=== PATIENT | male | born 1985 | race Caucasian/White ===

== ENCOUNTER 2016-06-03 05:35 | Emergency (ER) | payer SELFPAY ==
[2016-06-03] MEDS ORDERED: ASPIRIN 81 MG TABLET, CHEWABLE PO ONE (05:51)
[2016-06-03 06:28] LABS: ABSOLUTE BASOPHILS # (AUTO) 0.1 10^3/uL (0.0-0.2); ABSOLUTE EOSINOPHILS # (AUTO) 0.8 10^3/uL (0.0-0.6); ABSOLUTE LYMPHOCYTES (AUTO) 3.8 10^3/uL (0.5-4.7); ABSOLUTE MONOCYTES (AUTO) 0.9 10^3/uL (0.1-1.4); ABSOLUTE NEUT (AUTO) 5.2 10^3/uL (1.7-8.2); BASOPHILS % (AUTO) 0.5 % (0-2); EOSINOPHILS % (AUTO) 7.6 % (0-6); HEMATOCRIT 45.5 % (37.9-51.0); HEMOGLOBIN 15.7 g/dL (13.5-17.0); HGB HCT DIFFERENCE 1.6; LYMPHOCYTES % (AUTO) 35.2 % (13-45); MEAN CORPUSCULAR HEMOGLOBIN 28.5 pg (27.0-33.4); MEAN CORPUSCULAR HGB CONC 34.6 g/dL (32.0-36.0); MEAN CORPUSCULAR VOLUME 82 fl (80-97); MONOCYTES % (AUTO) 8.3 % (3-13); RED BLOOD COUNT 5.52 10^6/uL (4.35-5.55); SEGMENTED NEUTROPHILS % (AUTO) 48.4 % (42-78); WHITE BLOOD COUNT 10.8 10^3/uL (4.0-10.5)
[2016-06-03 06:51] LABS: ALANINE AMINOTRANSFERASE 41 U/L (21-72); ALBUMIN 4.6 g/dL (3.5-5.0); ALKALINE PHOSPHATASE 71 U/L (38-126); ANION GAP 14 (5-19); ASPARTATE AMINO TRANSFERASE 24 U/L (17-59); BILIRUBIN,DIRECT 0.2 mg/dL (0.0-0.4); BILIRUBIN,TOTAL 1.1 mg/dL (0.2-1.3); BLOOD UREA NITROGEN 13 mg/dL (7-20); CARBON DIOXIDE 27 mmol/L (22-30); CHLORIDE 104 mmol/L (98-107); CREATINE KINASE 127 U/L (55-170); CREATININE RESULT 0.91 mg/dL (0.52-1.25); GLUCOSE 102 mg/dL (75-110); POTASSIUM 4.1 mmol/L (3.6-5.0); SODIUM 144.6 mmol/L (137-145); TOTAL PROTEIN 7.4 g/dL (6.3-8.2)
--- NOTE | 2016-06-03 06:57 | ER Document Report ---
ED Cardiac <ISABELLEPEÑA MendietaDAVID - Last Filed: 06/03/16 07:07> - General Time seen by provider: 06:55 Mode of Arrival: Ambulatory Information source: Patient TRAVEL OUTSIDE OF THE [place] IN LAST 30 DAYS: No - HPI Patient complains to provider of: Chest pain Associated symptoms: Other - See above <SAHRA LOZA - Last Filed: 06/03/16 07:28> - General Chief Complaint: Chest Pain > 30 Stated Complaint: CHEST PAIN Notes: Patient is a 31 year old male, with a past medical history including POTS and anxiety, who presents to the emergency department complaining of chest pain intermittent for the past few weeks. Patient states that last night after work the pain worsened and he also experienced heat flash, nausea, and a copper taste in his mouth. Patient states the pain feels like "spasms" and it will sometimes radiate into his back, up his neck, or down his left arm. Patient reports that this pain is dissimilar to his POTS and anxiety in that it is more direct and makes his nauseated. Patient states he has been under a lot of stress recently and that he stopped taking his Inderal a year ago due to cost issues. Patient has no family history of ischemic coronary artery disease. ( SAHRA LOZA) - Related Data Allergies/Adverse Reactions: tramadol HCl [From [facility]] Allergy (Severe, Verified 06/03/16 05:46) Swelling of Throat Past Medical History - General Information source: Patient - Social History Smoking Status: Never Smoker Chew tobacco use (# tins/day): No Frequency of alcohol use: Occasional Drug Abuse: None Family History: Reviewed & Not Pertinent, Other - Migraine - Past Medical History Cardiac Medical History: Reports: Hx Hypertension - DX MORE THAN FIVE YEARS AGO Pulmonary Medical History: Reports: Hx Asthma - DX AT AGE [age] Neurological Medical History: Reports: Hx Seizures GI Medical History: Reports: Hx Irritable Bowel Psychiatric Medical History: Reports: Hx Anxiety - DX IN 2007, Hx Bipolar Disorder - DX IN 2007, Hx Depression - DX IN 2007, Hx Post Traumatic Stress Disorder - DX IN 2007 Past Surgical History: Reports: Hx Abdominal Surgery - APPENDIX, Hx Appendectomy , Hx Orthopedic Surgery - left wrist - Immunizations Immunizations up to date: Yes Hx Diphtheria, Pertussis, Tetanus Vaccination: Yes <SAHRA LOZA - Last Filed: 06/03/16 07:28> Review of Systems - Review of Systems Constitutional: See HPI, Other - hot flash EENT: No symptoms reported Cardiovascular: See HPI, Chest pain Respiratory: No symptoms reported Gastrointestinal: See HPI, Nausea - and "copper taste" Genitourinary: No symptoms reported Male Genitourinary: No symptoms reported Musculoskeletal: No symptoms reported Skin: No symptoms reported Hematologic/Lymphatic: No symptoms reported Neurological/Psychological: No symptoms reported -: Yes All other systems reviewed and negative <SAHRA LOZA - Last Filed: 06/03/16 07:28> Physical Exam - Vital signs Interpretation: Normal - General General appearance: Appears well, Alert - HEENT Head: Normocephalic, Atraumatic - Respiratory Respiratory status: No respiratory distress Chest status: Tender - Tenderness to palpation of left anterior chest wall that reproduces the chief complaint Breath sounds: Normal Chest palpation: Normal - Cardiovascular Rhythm: Regular Heart sounds: Normal auscultation Murmur: No - Abdominal Inspection: Normal Distension: No distension Bowel sounds: Normal Tenderness: Nontender Organomegaly: No organomegaly - Back Back: Normal, Nontender - Extremities General upper extremity: Normal inspection General lower extremity: Normal inspection - Neurological Neuro grossly intact: Yes Cognition: Normal Orientation: AAOx4 [place] Coma Scale Eye Opening: Spontaneous [place] Coma Scale Verbal: Oriented [place] Coma Scale Motor: Obeys Commands [place] Coma Scale Total: 15 Speech: Normal - Psychological Associated symptoms: Anxious - admitted by patient - Skin Skin Temperature: Warm Skin Moisture: Dry Skin Color: Normal <SAHRA LOZA - Last Filed: 06/03/16 07:28> - Vital signs Vitals: Temp Pulse Resp BP Pulse Ox 97.8 F 95 14 148/97 H 98 06/03/16 05:48 06/03/16 05:48 06/03/16 05:48 06/03/16 05:48 06/03/16 05:48 Course - Laboratory Result Diagrams: 06/03/16 06:15 06/03/16 06:15 - EKG Interpretation by Ia EKG shows normal: Sinus rhythm, [place], Intervals, QRS Complexes, ST-T Waves Rate: Normal - 86 Rhythm: NSR <DAVID WALTON - Last Filed: 06/03/16 07:07> - Laboratory Result Diagrams: 06/03/16 06:15 06/03/16 06:15 <SAHRA LOZA - Last Filed: 06/03/16 07:28> - Vital Signs Vital signs: Temp Pulse Resp BP Pulse Ox 98.1 F 95 17 132/84 H 97 06/03/16 07:01 06/03/16 05:48 06/03/16 07:01 06/03/16 07:01 06/03/16 07:01 - Laboratory Laboratory results interpreted by me: 06/03/16 06:15 WBC 10.8 H Eosinophils % 7.6 H Absolute Eosinophils 0.8 H Discharge <DAVID WALTON - Last Filed: 06/03/16 07:07> <SAHRA LOZA - Last Filed: 06/03/16 07:28> - Discharge Clinical Impression: Chest wall pain, Anxiety, Has run out of medications, POTS (postural orthostatic tachycardia syndrome) Condition: Stable Disposition: HOME, SELF-CARE Additional Instructions: Chest Wall Pain: Your chest pain has been diagnosed as coming from the chest wall. This is often caused by straining the muscles or joints in the chest during physical activity, direct trauma, coughing, or vigorous vomiting. Persons with arthritis are especially prone to this type of pain, due to inflammation of the cartilage joints near the breast bone. Occasionally, no cause can be found. Rest from strenuous physical activity. This kind of chest pain is usually made worse by movement of the chest. Depending on the symptoms, we may prescribe medicine for pain, muscle relaxation, and antiinflammatory effects. If the pain is new, and seems to be due to muscle strain, cold packs can help. Otherwise, apply gentle warmth to the painful area for 15 minutes every hour or two. You should contact the doctor immediately if things change. Further evaluation is needed if you develop a fever or cough, if the nature of the pain changes, or if you become short of breath. Prescriptions: Propranolol HCl 40 mg PO Q8 #90 tablet Referrals: KARISHMA HALL DO [Primary Care Provider] - Follow up as needed Scribe Attestation: 06/03/16 07:06 I personally performed the services described in the documentation, reviewed and edited the documentation which was dictated to the scribe in my presence, and it accurately records my words and actions. (DAVID WALTON) Scribe Documentation - Scribe Written by Scribe:: yvon Colon, 06/03/16, 0728 acting as scribe for :: Isabelle <SAHRA LOZA - Last Filed: 06/03/16 07:28>
[2016-06-03 07:15] VITALS: BP 132/84
--- NOTE | 2016-06-03 12:38 | EKG REPORT ---
SEVERITY:- NORMAL ECG - SINUS RHYTHM : Confirmed by: Douglas Arevalo 03-Jun-2016 12:37:41
== END 2016-06-03 07:23 | disposition home or self-care (01) ==
LOC: ER 05:35
DX: R07.9 Chest pain, unspecified (principal); F41.9 Anxiety disorder, unspecified; R11.0 Nausea; R43.8 Other disturbances of smell and taste; J45.909 Unspecified asthma, uncomplicated; R00.0 Tachycardia, unspecified; I10 Essential (primary) hypertension; Z91.14 Patient's other noncompliance with medication regimen; Z59.9 Problem related to housing and economic circumstances, unspecified; Z88.5 Allergy status to narcotic agent
CPT/HCPCS: 36415; 71010; 80053; 82550; 84484; 85025; 85379; 93005; 93010; 99285

== ENCOUNTER 2017-06-08 20:29 | Emergency (ER) | payer SELFPAY ==
[2017-06-08] MEDS ORDERED: ACETAMINOPHEN 325 MG TABLET PO ONE (20:44)
[2017-06-08] MEDS ORDERED: IBUPROFEN 600 MG TABLET PO ONE (20:44)
[2017-06-08] MEDS ORDERED: MORPHINE SULFATE IR 15 MG TABLET PO ONE ×2 (20:44→22:18)
[2017-06-08 21:09] LABS: APPEARANCE,URINE CLEAR; BILIRUBIN,URINE NEGATIVE (NEGATIVE); COLOR,URINE YELLOW; GLUCOSE, URINE NEGATIVE (NEGATIVE); KETONES,URINE NEGATIVE (NEGATIVE); LEUKOCYTE ESTERASE,URINE NEGATIVE (NEGATIVE); NITRITE,URINE NEGATIVE (NEGATIVE); PROTEIN,URINE NEGATIVE (NEGATIVE); URINE SPECIFIC GRAVITY 1.029
--- NOTE | 2017-06-08 22:20 | ER Document Report ---
ED General - General Chief Complaint: Scrotal Pain, Acute Onset Stated Complaint: LEFT TESTICLE PAIN Time Seen by Provider: 06/08/17 20:44 Notes: Patient is a 32-year-old male without chronic medical problems who presents for 24 hours of left testicular pain. He describes it as a progressively worsening severe, constant throbbing pain to the left testicle. Nothing improves or worsens the pain. He states that he had a similar episode approximately 1 month ago although not to this degree of severity. He states that he had an appropriate workup at that time as to the etiology of his pain and it did spontaneously resolve. He does note that his semen has been discolored over the past 24 hours having a brownish tinge to it. He also has noted some dysuria today. He notes that he was recently tested for sexually transmitted infections and all results were normal. He denies any fever or constitutional symptoms. No focal abdominal tenderness or flank tenderness. He has not seen his primary care doctor regarding today's concerns. TRAVEL OUTSIDE OF THE [place] IN LAST 30 DAYS: No - Related Data Allergies/Adverse Reactions: tramadol HCl [From [employer]] Allergy (Severe, Verified 06/03/16 05:46) Swelling of Throat Past Medical History - General Information source: Patient - Social History Smoking Status: Never Smoker Frequency of alcohol use: None Drug Abuse: None Lives with: Alone Family History: Reviewed & Not Pertinent, Other - Migraine Patient has suicidal ideation: No Patient has homicidal ideation: No - Past Medical History Cardiac Medical History: Reports: Hx Hypertension - DX MORE THAN FIVE YEARS AGO Denies: Hx Coronary Artery Disease, Hx Heart Attack Pulmonary Medical History: Reports: Hx Asthma - DX AT AGE [age] Denies: Hx Bronchitis, Hx COPD, Hx Pneumonia Neurological Medical History: Reports: Hx Seizures. Denies: Hx Cerebrovascular Accident Endocrine Medical History: Denies: Hx Diabetes Mellitus Type 2 Renal/ Medical History: Denies: Hx Peritoneal Dialysis GI Medical History: Reports: Hx Irritable Bowel. Denies: Hx Crohn's Disease, Hx Gastritis, Hx Gastroesophageal Reflux Disease, Hx Hepatitis Musculoskeltal Medical History: Denies Hx Arthritis Skin Medical History: Denies Hx MRSA Psychiatric Medical History: Reports: Hx Anxiety - DX IN 2007, Hx Bipolar Disorder - DX IN 2007, Hx Depression - DX IN 2007, Hx Post Traumatic Stress Disorder - DX IN 2007 Infectious Medical History: Denies: Hx Hepatitis, Hx MRSA Past Surgical History: Reports: Hx Abdominal Surgery - APPENDIX, Hx Appendectomy , Hx Orthopedic Surgery - left wrist. Denies: Hx Adenoidectomy, Hx Pacemaker - Immunizations Immunizations up to date: Yes Hx Diphtheria, Pertussis, Tetanus Vaccination: Yes Review of Systems - Review of Systems Notes: Constitutional: Negative for fever. HENT: Negative for sore throat. Eyes: Negative for visual changes. Cardiovascular: Negative for chest pain. Respiratory: Negative for shortness of breath. Gastrointestinal: Negative for abdominal pain, vomiting or diarrhea. Genitourinary: Positive for dysuria and left testicular tenderness Musculoskeletal: Negative for back pain. Skin: Negative for rash. Neurological: Negative for headaches, weakness or numbness. 10 point ROS negative except as marked above and in HPI. Physical Exam - Vital signs Vitals: Temp Pulse Resp BP Pulse Ox 98.0 F 85 17 128/85 H 98 06/09/17 00:08 06/09/17 00:08 06/09/17 00:08 06/09/17 00:08 06/09/17 00:08 Interpretation: Normal Notes: PHYSICAL EXAMINATION: GENERAL: Appears uncomfortable but no acute distress HEAD: Atraumatic, normocephalic. EYES: Pupils equal round and reactive to light, extraocular movements intact, sclera anicteric, conjunctiva are normal. ENT: nares patent, oropharynx clear without exudates. Moist mucous membranes. NECK: Normal range of motion, supple without lymphadenopathy LUNGS: Breath sounds clear to auscultation bilaterally and equal. No wheezes rales or rhonchi. HEART: Regular rate and rhythm without murmurs ABDOMEN: Soft, nontender, normoactive bowel sounds. No guarding, no rebound. No masses appreciated. : Normal testicular lie bilaterally. Absent cremasteric reflex bilaterally. Focal tenderness on palpation of the left testicle and epididymis. No hernia. No inguinal lymphadenopathy EXTREMITIES: Normal range of motion, no pitting or edema. No cyanosis. NEUROLOGICAL: No focal neurological deficits. Moves all extremities spontaneously and on command. PSYCH: Normal mood, normal affect. SKIN: Warm, Dry, normal turgor, no rashes or lesions noted. Course - Re-evaluation Re-evalutation: 06/08/17 22:18 Patient presents with approximately 12 hours of left testicular pain that has been progressively worsening since onset. He has a history of a similar event although not to this degree of severity approximately 1 year ago that was unclear in the etiology. Patient appears to be in significant discomfort. On testicular exam, he has equal testicular lie, absent cremasteric reflex bilaterally. Exquisite tenderness on palpation of the testicle and epididymis on the left, no tenderness on the right. Urinalysis does suggest signs of a urinary tract infection suggesting possible orchitis or epididymitis. Alternative considerations would certainly include a testicular torsion. I did order an ultrasound immediately upon evaluating this patient and he has not gone over an hour after I order the ultrasound. I have emphasized with the ultrasound department and nursing staff that he needs to go for the ultrasound immediately to rule out for testicular torsion 06/08/17 23:34 Testicular ultrasound is not visualized of acute testicular torsion. Given patient's urinalysis and focal left testicular tenderness most worrisome for possible orchitis. Gonorrhea and Chlamydia are negative. Will start on a seven -day course of cephalexin, urine culture is pending. I have provided the patient urology follow-up. At this time will discharge with return precautions and follow-up recommendations. Verbal discharge instructions given a the bedside and opportunity for questions given. Medication warnings reviewed. Patient is in agreement with this plan and has verbalized understanding of return precautions and the need for primary care follow-up in the next 24-72 hours. - Vital Signs Vital signs: Temp Pulse Resp BP Pulse Ox 98.0 F 85 17 128/85 H 98 06/09/17 00:08 06/09/17 00:08 06/09/17 00:08 06/09/17 00:08 06/09/17 00:08 - Laboratory Laboratory results interpreted by me: 06/08/17 20:56 Urine Urobilinogen 2.0 H - Diagnostic Test Radiology reviewed: Reports reviewed Discharge - Discharge Clinical Impression: Orchitis, Left testicular pain Condition: Good Disposition: HOME, SELF-CARE Additional Instructions: You were seen for painful left testicle. Your ultrasound does not show any evidence of a twisted testicle. Your urine does however appear to be infected. Your gonorrhea and chlamydia screens are negative. Your being started on a seven-day course of antibiotics to treat a likely infection based on your urinalysis findings. For your pain: Take ibuprofen 600 mg and acetaminophen 1000 mg every 6 hours together as needed for pain. If this does not control your pain you may take 15 mg of oral morphine every 4 hours as needed. Please be very careful about using the oral morphine and only use this for severe pain. You should follow-up with urology within the next 2-3 days particularly if your pain is not improving. Return to the emergency department immediately if you develop fever, worsening pain, persistent vomiting, or any other symptoms that are worrisome to you. Prescriptions: Morphine Sulfate [Morphine Ir 15 mg Tablet] 15 mg PO Q4HP PRN #6 tablet PRN Reason: Cephalexin Monohydrate [Keflex 500 mg Capsule] 500 mg PO Q6H 7 Days capsule Referrals: KAIRSHMA HALL DO [Primary Care Provider] - Follow up as needed JENN CHEN II, MD [[facility]] - Follow up in 3-5 days
[2017-06-08 22:34] LABS: CHLAM PCR NOT DETECTED (NOT DETECT); GON PCR NOT DETECTED (NOT DETECT)
--- NOTE | 2017-06-08 23:33 | RADIOLOGY REPORT (SQ) ---
EXAM DESCRIPTION: U/S SCROTUM W/DOPPLER COMPLETED DATE/TIME: 06/08/2017 11:05 pm REASON FOR STUDY: left testicle pain COMPARISON: None. TECHNIQUE: Static and realtime joseph scale imaging of the scrotum and testes. Selected color Doppler and spectral images recorded to document blood flow. LIMITATIONS: None. FINDINGS: RIGHT: TESTICLE: Normal size. Normal echotexture. Normal blood flow. No mass. EPIDIDYMIS: Normal. HYDROCELE OR VARICOCELE: Small hydrocele No varicocele. HERNIA OR EXTRA-TESTICULAR MASS: No. OTHER: No other significant finding. LEFT: TESTICLE: Normal size. Normal echotexture. Normal blood flow. No mass. EPIDIDYMIS: Normal. HYDROCELE OR VARICOCELE: Small hydrocele No varicocele. HERNIA OR EXTRA-TESTICULAR MASS: No. OTHER: No other significant finding. IMPRESSION: Small bilateral hydroceles. NO EVIDENCE OF TESTICULAR MASS OR TORSION. TECHNICAL DOCUMENTATION: JOB ID: [id number] [id number] 2010 [employer]- All Rights Reserved Reading location - IP/workstation name: [email or web address]
[2017-06-08] MEDS ORDERED: CEPHALEXIN 500 MG CAPSULE PO ONE (23:37)
[2017-06-09] MEDS ORDERED: ONDANSETRON ODT 4 MG TAB (6 TAB/ER DISP) PO PRN (00:01)
[2017-06-09 00:09] VITALS: BP 128/85
== END 2017-06-09 00:07 | disposition home or self-care (01) ==
LOC: ER 20:29
DX: N45.2 Orchitis (principal); N50.812 Left testicular pain
CPT/HCPCS: 76870; 81001; 87086; 87491; 87591; 93976; 99284

== ENCOUNTER 2017-06-12 21:25 | Inpatient (IN) | payer SELFPAY ==
[2017-06-12] MEDS ORDERED: CEFTRIAXONE INJ 1000 MG VIAL IV ONE (22:16)
[2017-06-12] MEDS ORDERED: MORPHINE SULFATE 10 MG/ML INJ IV ONE (22:17)
[2017-06-12] MEDS ORDERED: MORPHINE SULFATE 10 MG/ML INJ ONE (22:20)
[2017-06-12 22:36] LABS: ABSOLUTE BASOPHILS # (AUTO) 0.1 10^3/uL (0.0-0.2); ABSOLUTE EOSINOPHILS # (AUTO) 0.5 10^3/uL (0.0-0.6); ABSOLUTE LYMPHOCYTES (AUTO) 2.8 10^3/uL (0.5-4.7); ABSOLUTE NEUT (AUTO) 13.3 10^3/uL (1.7-8.2); BASOPHILS % (AUTO) 0.4 % (0-2); EOSINOPHILS % (AUTO) 2.8 % (0-6); HEMATOCRIT 44.7 % (37.9-51.0); LYMPHOCYTES % (AUTO) 14.8 % (13-45); MEAN CORPUSCULAR HEMOGLOBIN 28.2 pg (27.0-33.4); MEAN CORPUSCULAR HGB CONC 33.6 g/dL (32.0-36.0); MEAN CORPUSCULAR VOLUME 84 fl (80-97); MONOCYTES % (AUTO) 10.8 % (3-13); PLATELET COUNT 312 10^3/uL (150-450); RED BLOOD COUNT 5.33 10^6/uL (4.35-5.55); RED CELL DISTRIBUTION WIDTH 13.5 % (11.5-14.0); SEGMENTED NEUTROPHILS % (AUTO) 71.2 % (42-78); TOTAL CELLS COUNTED % (AUTO) 100 %; WHITE BLOOD COUNT 18.7 10^3/uL (4.0-10.5)
[2017-06-12 22:54] LABS: ANION GAP 14 (5-19); BLOOD UREA NITROGEN 15 mg/dL (7-20); CALCIUM 9.6 mg/dL (8.4-10.2); CARBON DIOXIDE 26 mmol/L (22-30); CHLORIDE 103 mmol/L (98-107); GLUCOSE 97 mg/dL (75-110); POTASSIUM 4.1 mmol/L (3.6-5.0)
[2017-06-12 22:56] LABS: APPEARANCE,URINE CLEAR; BILIRUBIN,URINE NEGATIVE (NEGATIVE); COLOR,URINE YELLOW; GLUCOSE, URINE NEGATIVE (NEGATIVE); KETONES,URINE NEGATIVE (NEGATIVE); LEUKOCYTE ESTERASE,URINE SMALL (NEGATIVE); NITRITE,URINE NEGATIVE (NEGATIVE); PROTEIN,URINE NEGATIVE (NEGATIVE); UROBILINOGEN,URINE NEGATIVE mg/dL (<2.0)
--- NOTE | 2017-06-12 23:14 | ER Document Report ---
ED General - General Chief Complaint: Testicular pain/ swelling Stated Complaint: TESTICULAR PAIN Time Seen by Provider: 06/12/17 22:08 Notes: Patient is a 32-year-old male who presents with complaint of swelling increasing pain to the left testicle. He was seen on Sunday and diagnosed with full epididymitis. His ultrasound that time was negative. He started Keflex has been taking it as prescribed. Said today his left scrotal region and testicle started to swell a large amount and is become very painful. No fevers. No vomiting. No abdominal pain. He was negative for gonorrhea chlamydia on Sunday. No recent trauma or injuries. No sexual activity but he has masturbated. He says that his ejaculate is somewhat bloody. TRAVEL OUTSIDE OF THE [place] IN LAST 30 DAYS: No - Related Data Allergies/Adverse Reactions: tramadol HCl [From [employer]] Allergy (Severe, Verified 06/03/16 05:46) Swelling of Throat Past Medical History - Social History Smoking Status: Never Smoker Chew tobacco use (# tins/day): No Frequency of alcohol use: Occasional Drug Abuse: Marijuana Family History: Reviewed & Not Pertinent, Other - Migraine Patient has suicidal ideation: No Patient has homicidal ideation: No - Past Medical History Cardiac Medical History: Reports: Hx Hypertension - DX MORE THAN FIVE YEARS AGO Denies: Hx Coronary Artery Disease, Hx Heart Attack Pulmonary Medical History: Reports: Hx Asthma - DX AT AGE [age] Denies: Hx Bronchitis, Hx COPD, Hx Pneumonia Neurological Medical History: Reports: Hx Seizures. Denies: Hx Cerebrovascular Accident Endocrine Medical History: Denies: Hx Diabetes Mellitus Type 2 Renal/ Medical History: Denies: Hx Peritoneal Dialysis GI Medical History: Reports: Hx Irritable Bowel. Denies: Hx Crohn's Disease, Hx Gastritis, Hx Gastroesophageal Reflux Disease, Hx Hepatitis Musculoskeltal Medical History: Denies Hx Arthritis Skin Medical History: Denies Hx MRSA Psychiatric Medical History: Reports: Hx Anxiety - DX IN 2007, Hx Bipolar Disorder - DX IN 2007, Hx Depression - DX IN 2007, Hx Post Traumatic Stress Disorder - DX IN 2007 Infectious Medical History: Denies: Hx Hepatitis, Hx MRSA Past Surgical History: Reports: Hx Abdominal Surgery - APPENDIX, Hx Appendectomy , Hx Orthopedic Surgery - left wrist. Denies: Hx Adenoidectomy, Hx Pacemaker - Immunizations Immunizations up to date: Yes Hx Diphtheria, Pertussis, Tetanus Vaccination: Yes Review of Systems - Review of Systems Notes: My Normal Review Basic REVIEW OF SYSTEMS: CONSTITUTIONAL : Denies fever, chills, or sweats. Denies recent illness. GASTROINTESTINAL: Denies abdominal pain. Denies nausea, vomiting, or diarrhea. Denies constipation. Last BM: GENITOURINARY: Denies difficulty urinating, painful urination, burning, frequency, or blood in urine. Male genital: Swelling and redness to left scrotal region. SKIN: Denies rash or skin lesions. NEUROLOGICAL: Denies altered mental status or loss of consciousness. Denies headache. Denies weakness or paralysis or loss of use of either side. Denies problems with gait or speech. Denies sensory or motor loss. ALL OTHER SYSTEMS REVIEWED AND NEGATIVE. Physical Exam - Vital signs Vitals: Temp Pulse Resp BP Pulse Ox 98.1 F 134 H 16 151/96 H 97 06/12/17 21:32 06/12/17 21:32 06/12/17 21:32 06/12/17 21:32 06/12/17 21:32 - Notes Notes: General Appearance: Well nourished, alert, cooperative, no acute distress, moderate obvious discomfort. Vitals: reviewed, See vital signs table. Eyes: PERRL, EOMI, Conjuctiva clear Abdomen: Normal BS, soft, No rigidity, No abdominal tenderness, No guarding, no rebound, no abdominal masses, no organomegaly Genital: Patient has large amount of swelling and redness to the left scrotal area and is firm however left scrotal area. Tender to touch. Skin: warm, dry, appropriate color, no rash Neuro: speech clear, oriented x 3, normal affect, responds appropriately to questions. Course - Re-evaluation Re-evalutation: 06/13/17 00:14 Ultrasound shows worsening orchitis. No evidence of abscess at this time. We have urology coverage starting at 7 AM. I did give him a dose of IV Rocephin. I did speak with the hospitalist Dr. Pabon who agrees to admit the patient for IV antibiotics and consult with urology. I did explain the plan to the patient and he is agreeable to it. Patient is on propranolol for pots. He did not have his evening dose today. This may be why he is even more tachycardic. I think he is tachycardic because of that in conjunction with with the pain from his arthritis. I will give a dose of his propranolol being that he has not had it. Dictation of this chart was performed using voice recognition software; therefore, there may be some unintended grammatical errors. 06/13/17 00:15 - Vital Signs Vital signs: Temp Pulse Resp BP Pulse Ox 98.1 F 134 H 16 151/96 H 97 06/12/17 21:32 06/12/17 21:32 06/12/17 21:32 06/12/17 21:32 06/12/17 21:32 - Laboratory Result Diagrams: 06/12/17 22:25 06/12/17 22:25 Laboratory results interpreted by me: 06/12/17 06/12/17 22:25 22:30 WBC 18.7 H Absolute Neutrophils 13.3 H Absolute Monocytes 2.0 H Urine Blood SMALL H Ur Leukocyte Esterase SMALL H Discharge - Discharge Clinical Impression: Orchiditis Condition: Stable Disposition: ADMITTED OBSERVATION Admitting Provider: Hospitalist Unit Admitted: Medical Floor
--- NOTE | 2017-06-12 23:57 | RADIOLOGY REPORT (SQ) ---
EXAM DESCRIPTION: U/S SCROTUM W/DOPPLER CLINICAL HISTORY: 32 years, Male, testicular pain COMPARISON: None. LIMITATIONS: None. FINDINGS: Heterogeneous, edematous appearance of the 1.8 x 1.6 x 1.3 cm left epididymis with increased vascularity. Mild increased vascularity of the left testis. Small septated left hydrocele. Asymmetric scrotal wall thickening measures 1.6 cm. Small right hydrocele. Else, 1.2 x 0.7 x 0.9 cm right epididymis, 4.2 cm right testis, 3.8 cm left testis, appear otherwise unremarkable. No testicular torsion or mass. IMPRESSION: 1. Moderate left epididymoorchitis. Asymmetric left paracentral scrotal wall thickening measures 1.6 cm and may indicate scrotal cellulitis. 2. No testicular torsion or mass.
[2017-06-13] MEDS ORDERED: ONDANSETRON HCL INJ/PF 4 MG/2 ML SDV IV PRN (00:10)
[2017-06-13] MEDS ORDERED: MAG HYDROX/AL HYDROX/SIMETH SUSP 30 ML UDCUP PO PRN (00:10)
[2017-06-13] MEDS ORDERED: IPRATROPIUM/ALBUTEROL 0.5-2.5 MG/3 ML AMPUL NEB PRN (00:10)
[2017-06-13] MEDS ORDERED: MAGNESIUM HYDROXIDE SUSP 30 ML UDCUP PO PRN (00:10)
[2017-06-13] MEDS ORDERED: PROPRANOLOL HCL 40 MG TABLET PO ONE (00:12)
[2017-06-13] MEDS ORDERED: NORMAL SALINE 1000 ML 1,000 ML IV ONE (00:13)
[2017-06-13] MEDS ORDERED: MORPHINE SULFATE 10 MG/ML INJ IV ONE (00:13)
[2017-06-13] MEDS: ACETAMINOPHEN 325 MG TABLET PO SCH ×4 (00:15→17:56)
[2017-06-13] MEDS ORDERED: NORMAL SALINE 1000 ML 1,000 ML IV SCH (00:15)
[2017-06-13] MEDS ORDERED: PROPRANOLOL HCL 40 MG TABLET ONE (00:36)
--- NOTE | 2017-06-13 01:54 | PDOC H&P ---
History of Present Illness Admission Date/PCP: 06/13/17 00:37 CHASE HALL MD Patient complains of: 7 days of left testicular pain History of Present Illness: ANGEL SHORE is a 32 year old male with past medical history of Vital disease on propanolol. Patient presents with follow-up of left testicular epididymitis , swelling and pain patient was seen treated and discharged 4 days ago with Keflex without significant improvement. In the emergency room CBC reveals leukocytosis of 18,000, ultrasound reveals acute epididymitis without torsion he started on IV Rocephin for the hospitalist for admission. Patient admits to single episode several years ago, denies exceptional STD risk, Chlamydia gonorrhea returned negative from 4 days ago. Past Medical History Cardiac Medical History: Reports: Hypertension - DX MORE THAN FIVE YEARS AGO Denies: Coronary Artery Disease, Myocardial Infarction Pulmonary Medical History: Reports: Asthma - DX AT AGE [age] Denies: Bronchitis, Chronic Obstructive Pulmonary Disease (COPD), Pneumonia Neurological Medical History: Reports: Seizures Endocrine Medical History: Denies: Diabetes Mellitus Type 2 GI Medical History: Denies: Crohn's Disease, Gastroesophageal Reflux Disease, Hepatitis Musculoskeltal Medical History: Denies: Arthritis Psychiatric Medical History: Reports: Bipolar Disorder - DX IN 2008, Depression - DX IN 2007, Post Traumatic Stress Disorder - DX IN 2007 Hematology: Denies: Anemia Infectious Medical History: Denies: Methicillin-Resistant Staph Aureus Past Surgical History Past Surgical History: Reports: Appendectomy, Orthopedic Surgery - left wrist Denies: Pacemaker Social History Information Source: Patient, Emergency Med Personnel, [facility] Records Smoking Status: Never Smoker Frequency of Alcohol Use: None Drugs: None - Advance Directive Resuscitation Status: Full Code Family History Family History: Other - Migraine Parental Family History Reviewed: Yes Children Family History Reviewed: Yes Sibling(s) Family History Reviewed.: Yes Medication/Allergy Home Medications: Propranolol HCl 40 mg PO Q8 #90 tablet 06/03/16 Allergies/Adverse Reactions: tramadol HCl [From [facility]] Allergy (Severe, Verified 06/03/16 05:46) Swelling of Throat Review of Systems Constitutional: ABSENT: chills, fever(s), headache(s), weight gain, weight loss Eyes: ABSENT: visual disturbances Ears: ABSENT: hearing changes Cardiovascular: ABSENT: chest pain, dyspnea on exertion, edema, orthropnea, palpitations Respiratory: ABSENT: cough, hemoptysis Gastrointestinal: ABSENT: abdominal pain, constipation, diarrhea, hematemesis, hematochezia, nausea, vomiting Genitourinary: ABSENT: dysuria, hematuria Musculoskeletal: ABSENT: joint swelling Integumentary: ABSENT: rash, wounds Neurological: ABSENT: abnormal gait, abnormal speech, confusion, dizziness, focal weakness, syncope Psychiatric: ABSENT: anxiety, depression, homidical ideation, suicidal ideation Endocrine: ABSENT: cold intolerance, heat intolerance, polydipsia, polyuria Hematologic/Lymphatic: ABSENT: easy bleeding, easy bruising Physical Exam Vital Signs: Temp Pulse Resp BP Pulse Ox 99.1 F 111 H 18 117/81 97 06/13/17 00:36 06/13/17 00:36 06/13/17 00:36 06/13/17 00:36 06/13/17 00:36 General appearance: PRESENT: cooperative, mild distress, well-developed, well- nourished Head exam: PRESENT: atraumatic, normocephalic Eye exam: PRESENT: conjunctiva pink, EOMI, PERRLA. ABSENT: scleral icterus Ear exam: PRESENT: normal external ear exam Mouth exam: PRESENT: moist, tongue midline Neck exam: ABSENT: carotid bruit, JVD, lymphadenopathy, thyromegaly Respiratory exam: PRESENT: clear to auscultation chayito. ABSENT: rales, rhonchi, wheezes Cardiovascular exam: PRESENT: RRR. ABSENT: diastolic murmur, rubs, systolic murmur Pulses: PRESENT: normal dorsalis pedis pul Vascular exam: PRESENT: normal capillary refill GI/Abdominal exam: PRESENT: normal bowel sounds, soft. ABSENT: distended, guarding, mass, organolmegaly, rebound, tenderness Rectal exam: PRESENT: deferred Gentrourinary exam: PRESENT: scrotal swelling, testicular tenderness - Left- sided posterior tenderness, enlarged indurated 4 x 5 cm, no perineum or gluteal pain. ABSENT: urethral discharge, indwelling catheter Extremities exam: PRESENT: full ROM. ABSENT: calf tenderness, clubbing, pedal edema Neurological exam: PRESENT: alert, awake, oriented to person, oriented to place , oriented to time, oriented to situation, CN II-XII grossly intact. ABSENT: motor sensory deficit Psychiatric exam: PRESENT: appropriate affect, normal mood. ABSENT: homicidal ideation, suicidal ideation Skin exam: PRESENT: dry, intact, warm. ABSENT: cyanosis, rash Results Impressions: Scrotum Ultrasound 06/12/17 22:10 IMPRESSION: 1. Moderate left epididymoorchitis. Asymmetric left paracentral scrotal wall thickening measures 1.6 cm and may indicate scrotal cellulitis. 2. No testicular torsion or mass. Assessment & Plan - Diagnosis (1) Orchitis Is this a current diagnosis for this admission?: Yes Plan: Symptomatic management, empiric Rocephin, follow-up CBC, blood and urine culture , consider urology consult. (2) Left testicular pain Is this a current diagnosis for this admission?: Yes Plan: Symptomatic management. Correction #1 - Time Time Spent: 30 to 50 Minutes - Inpatient Certification Medical Necessity: Need Close Monitoring Due to Risk of Patient Decompensation
[2017-06-13] MEDS: OXYCODONE HCL IR 5 MG TABLET PO PRN ×3 (02:27→17:50)
[2017-06-13 04:47] LABS: ABSOLUTE BASOPHILS # (AUTO) 0.1 10^3/uL (0.0-0.2); ABSOLUTE EOSINOPHILS # (AUTO) 0.5 10^3/uL (0.0-0.6); ABSOLUTE LYMPHOCYTES (AUTO) 2.3 10^3/uL (0.5-4.7); ABSOLUTE MONOCYTES (AUTO) 1.7 10^3/uL (0.1-1.4); ABSOLUTE NEUT (AUTO) 13.1 10^3/uL (1.7-8.2); BASOPHILS % (AUTO) 0.5 % (0-2); EOSINOPHILS % (AUTO) 2.9 % (0-6); HEMATOCRIT 39.2 % (37.9-51.0); LYMPHOCYTES % (AUTO) 13.2 % (13-45); MEAN CORPUSCULAR HEMOGLOBIN 27.7 pg (27.0-33.4); MEAN CORPUSCULAR HGB CONC 33.1 g/dL (32.0-36.0); MEAN CORPUSCULAR VOLUME 84 fl (80-97); MONOCYTES % (AUTO) 9.6 % (3-13); PLATELET COUNT 248 10^3/uL (150-450); RED BLOOD COUNT 4.69 10^6/uL (4.35-5.55); SEGMENTED NEUTROPHILS % (AUTO) 73.8 % (42-78); TOTAL CELLS COUNTED % (AUTO) 100 %; WHITE BLOOD COUNT 17.7 10^3/uL (4.0-10.5)
[2017-06-13 05:11] LABS: ANION GAP 9 (5-19); BLOOD UREA NITROGEN 14 mg/dL (7-20); CALCIUM 8.7 mg/dL (8.4-10.2); CARBON DIOXIDE 27 mmol/L (22-30); CHLORIDE 107 mmol/L (98-107); GLUCOSE 123 mg/dL (75-110); POTASSIUM 4.2 mmol/L (3.6-5.0); SODIUM 142.6 mmol/L (137-145)
[2017-06-13] MEDS: HEPARIN SOD (PORCINE) 5,000 UNIT/ML 1 ML SYRINGE SUBCUT SCH ×3 (06:55→21:26)
[2017-06-13] MEDS: DOCUSATE SODIUM 100 MG CAPSULE PO SCH ×2 (09:18→17:50)
[2017-06-13] MEDS: CEFTRIAXONE SODIUM 1,000 MG in NORMAL SALINE 100 ML IV SCH (09:43)
[2017-06-13] MEDS ORDERED: CEFTRIAXONE 1 GM/D5W RTU 1 GM/50 ML RTUPB IV SCH (10:00)
--- NOTE | 2017-06-13 12:39 | PDOC PROGRESS REPORT ---
Subjective Progress Note for:: 06/13/17 Subjective:: Admitted overnight for epididymitis. Complains of pain in scrotum. No fever or chills, no chest pain or shortness of breath or palpitations. Patient seen by urologist Neo today and he stated no abscess, and no surgical intervention needed at this time. Recommend continue Rocephin, [id number] ibuprofen, elevate the scrotum. Reason For Visit: EPIDIDYMITMS Physical Exam Vital Signs: Temp Pulse Resp BP Pulse Ox 98.9 F 94 16 109/71 96 06/13/17 12:00 06/13/17 12:00 06/13/17 12:00 06/13/17 12:00 06/13/17 12:00 Intake & Output 06/12/17 06/13/17 06/14/17 06:59 06:59 06:59 Weight 104.2 kg GENERAL: Well-developed, no acute distress HEENT: Normocephalic/atraumatic NECK supple, no JVD CARDIOVASCULAR: RRR, normal S1-S2 LUNGS: CTA bilaterally ABDOMEN: Soft, NT, NL bowel sounds EXTREMITIES: No edema, clubbing, cyanosis : Significant edema of scrotum with some redness, my involvement, tenderness NEUROLOGICAL: Alert, oriented x 3, nonfocal Results Laboratory Results: 06/13/17 04:01 06/13/17 04:01 06/13/17 06/13/17 04:01 04:01 WBC 17.7 H RBC 4.69 Hgb 13.0 L Hct 39.2 MCV 84 MCH 27.7 MCHC 33.1 RDW 13.0 Plt Count 248 Seg Neutrophils % 73.8 Lymphocytes % 13.2 Monocytes % 9.6 Eosinophils % 2.9 Basophils % 0.5 Absolute Neutrophils 13.1 H Absolute Lymphocytes 2.3 Absolute Monocytes 1.7 H Absolute Eosinophils 0.5 Absolute Basophils 0.1 Sodium 142.6 Potassium 4.2 Chloride 107 Carbon Dioxide 27 Anion Gap 9 BUN 14 Creatinine 0.81 Est GFR ( Amer) > 60 Est GFR (Non-Af Amer) > 60 Glucose 123 H Calcium 8.7 Impressions: Scrotum Ultrasound 06/12/17 22:10 IMPRESSION: 1. Moderate left epididymoorchitis. Asymmetric left paracentral scrotal wall thickening measures 1.6 cm and may indicate scrotal cellulitis. 2. No testicular torsion or mass. Assessment & Plan - Plan Summary Plan Summary: (1) Orchitis Is this a current diagnosis for this admission?: Yes Plan: Continue symptomatic management, empiric Rocephin, follow-up CBC, blood and urine culture, urology consult appreciated. (2) Left testicular pain Is this a current diagnosis for this admission?: Yes Plan: Symptomatic management. Elevate scrotum, [id number] ibuprofen by urology recommendation.
[2017-06-13] MEDS: IBUPROFEN 400 MG TABLET PO SCH ×2 (14:54→21:26)
[2017-06-14 06:58] LABS: ABSOLUTE EOSINOPHILS # (AUTO) 0.5 10^3/uL (0.0-0.6); ABSOLUTE MONOCYTES (AUTO) 2.1 10^3/uL (0.1-1.4); ABSOLUTE NEUT (AUTO) 11.4 10^3/uL (1.7-8.2); BASOPHILS % (AUTO) 0.2 % (0-2); EOSINOPHILS % (AUTO) 3.3 % (0-6); HEMATOCRIT 39.9 % (37.9-51.0); HEMOGLOBIN 13.2 g/dL (13.5-17.0); LYMPHOCYTES % (AUTO) 12.5 % (13-45); MEAN CORPUSCULAR HEMOGLOBIN 27.9 pg (27.0-33.4); MEAN CORPUSCULAR VOLUME 84 fl (80-97); MONOCYTES % (AUTO) 12.9 % (3-13); PLATELET COUNT 265 10^3/uL (150-450); RED BLOOD COUNT 4.73 10^6/uL (4.35-5.55); RED CELL DISTRIBUTION WIDTH 13.2 % (11.5-14.0); SEGMENTED NEUTROPHILS % (AUTO) 71.1 % (42-78); TOTAL CELLS COUNTED % (AUTO) 100 %
[2017-06-14 07:16] LABS: ANION GAP 10 (5-19); BLOOD UREA NITROGEN 15 mg/dL (7-20); CALCIUM 9.4 mg/dL (8.4-10.2); CARBON DIOXIDE 30 mmol/L (22-30); CHLORIDE 105 mmol/L (98-107); GLUCOSE 100 mg/dL (75-110); POTASSIUM 4.5 mmol/L (3.6-5.0); SODIUM 144.9 mmol/L (137-145)
[2017-06-14] MEDS: IBUPROFEN 400 MG TABLET PO SCH ×3 (08:23→23:00)
[2017-06-14] MEDS: ACETAMINOPHEN 325 MG TABLET PO SCH ×2 (09:02→16:39)
[2017-06-14] MEDS: OXYCODONE HCL IR 5 MG TABLET PO PRN ×2 (09:02→14:46)
[2017-06-14] MEDS: DOCUSATE SODIUM 100 MG CAPSULE PO SCH ×2 (09:02→17:26)
[2017-06-14] MEDS: CEFTRIAXONE SODIUM 1,000 MG in NORMAL SALINE 100 ML IV SCH (09:03)
[2017-06-14 13:32] LABS: APPEARANCE,URINE CLEAR; BILIRUBIN,URINE NEGATIVE (NEGATIVE); COLOR,URINE YELLOW; GLUCOSE, URINE NEGATIVE (NEGATIVE); KETONES,URINE NEGATIVE (NEGATIVE); LEUKOCYTE ESTERASE,URINE NEGATIVE (NEGATIVE); NITRITE,URINE NEGATIVE (NEGATIVE); PROTEIN,URINE NEGATIVE (NEGATIVE); URINE SPECIFIC GRAVITY 1.009; UROBILINOGEN,URINE NEGATIVE mg/dL (<2.0)
[2017-06-14] MEDS: HEPARIN SOD (PORCINE) 5,000 UNIT/ML 1 ML SYRINGE SUBCUT SCH ×3 (13:40→23:29)
--- NOTE | 2017-06-14 16:33 | PDOC PROGRESS REPORT ---
Subjective Progress Note for:: 06/14/17 Subjective:: Admitted 06/13 for epididymitis. Complains of pain in scrotum, though improving. Swelling also improving. No fever or chills, no chest pain or shortness of breath or palpitations. Patient is being followed by urologist Neo today and he stated no abscess, and no surgical intervention needed at this time. Recommend continue Rocephin, [id number] ibuprofen, elevate the scrotum. Also has recommended rechecking scrotal ultrasound prior to discharge, and checking kidney ultrasound today. Reason For Visit: EPIDIDYMITMS Physical Exam Vital Signs: Temp Pulse Resp BP Pulse Ox 98.2 F 96 17 124/79 97 06/14/17 15:07 06/14/17 15:07 06/14/17 15:07 06/14/17 15:07 06/14/17 15:07 Intake & Output 06/13/17 06/14/17 06/15/17 06:59 06:59 06:59 Intake Total 965 350 Output Total 1200 Balance -235 350 Weight 104.2 kg 107.1 kg GENERAL: Well-developed, no acute distress HEENT: Normocephalic/atraumatic NECK supple, no JVD CARDIOVASCULAR: RRR, normal S1-S2 LUNGS: CTA bilaterally ABDOMEN: Soft, NT, NL bowel sounds EXTREMITIES: No edema, clubbing, cyanosis : Significant edema of scrotum with some redness, tenderness NEUROLOGICAL: Alert, oriented x 3, nonfocal Results Laboratory Results: 06/14/17 06:25 06/14/17 06:25 06/14/17 06/14/17 06/14/17 06:25 06:25 13:00 WBC 16.0 H RBC 4.73 Hgb 13.2 L Hct 39.9 MCV 84 MCH 27.9 MCHC 33.0 RDW 13.2 Plt Count 265 Seg Neutrophils % 71.1 Lymphocytes % 12.5 L Monocytes % 12.9 Eosinophils % 3.3 Basophils % 0.2 Absolute Neutrophils 11.4 H Absolute Lymphocytes 2.0 Absolute Monocytes 2.1 H Absolute Eosinophils 0.5 Absolute Basophils 0.0 Sodium 144.9 Potassium 4.5 Chloride 105 Carbon Dioxide 30 Anion Gap 10 BUN 15 Creatinine 0.89 Est GFR ( Amer) > 60 Est GFR (Non-Af Amer) > 60 Glucose 100 Calcium 9.4 Urine Color YELLOW Urine Appearance CLEAR Urine pH 6.0 Ur Specific Sem[place] 1.009 Urine Protein NEGATIVE Urine Glucose (UA) NEGATIVE Urine Ketones NEGATIVE Urine Blood NEGATIVE Urine Nitrite NEGATIVE Ur Leukocyte Esterase NEGATIVE Urine WBC (Auto) 8 Urine RBC (Auto) 0 Impressions: Scrotum Ultrasound 06/12/17 22:10 IMPRESSION: 1. Moderate left epididymoorchitis. Asymmetric left paracentral scrotal wall thickening measures 1.6 cm and may indicate scrotal cellulitis. 2. No testicular torsion or mass. Assessment & Plan - Plan Summary Plan Summary: (1) Orchitis Is this a current diagnosis for this admission?: Yes Plan: Continue symptomatic management, empiric Rocephin, white blood cell slightly done today although still elevated, follow-up CBC, blood and urine culture, urology consult appreciated. -Urology follow-up appreciated. Recommending scrotal ultrasound prior to discharge and kidney ultrasound today. (2) Left testicular pain Is this a current diagnosis for this admission?: Yes Plan: Symptomatic management. Elevate scrotum, [id number] ibuprofen per urology recommendation.
--- NOTE | 2017-06-14 17:30 | RADIOLOGY REPORT (SQ) ---
EXAM DESCRIPTION: U/S RETROPERITON (RENAL/AORTA) COMPLETED DATE/TIME: 06/14/2017 5:10 pm REASON FOR STUDY: abdominal pain COMPARISON: CT abdomen pelvis 10/30/2009 TECHNIQUE: Dynamic and static grayscale images acquired of the kidneys and bladder and recorded on P ACS. Additional selected color Doppler and spectral images recorded. LIMITATIONS: None. FINDINGS: RIGHT KIDNEY: 11.6 cm in length. Normal echogenicity. No solid or suspicious masses. No hy dronephrosis. 5 to 7 mm echogenic shadowing focus right mid-pole kidney likely an intrarenal nonobst ructive stone. LEFT KIDNEY: 12 cm in length. Normal echogenicity. No solid or suspicious masses. 1 cm cyst left lo wer pole kidney. No hydronephrosis. No calcifications. BLADDER: Decompressed not well seen OTHER FINDINGS: No other significant finding. IMPRESSION: No right or left hydronephrosis 5 to 7 mm right midpole intrarenal nonobstructive calculus Bladder not visualized TECHNICAL DOCUMENTATION: JOB ID: [id number] [employer]- All Rights Reserved Reading location - IP/workstation name: [facility]
[2017-06-14] MEDS ORDERED: PROPRANOLOL HCL 40 MG TABLET PO ONE (21:00)
[2017-06-15] MEDS: ACETAMINOPHEN 325 MG TABLET PO SCH ×3 (00:15→16:12)
[2017-06-15] MEDS: HEPARIN SOD (PORCINE) 5,000 UNIT/ML 1 ML SYRINGE SUBCUT SCH ×2 (05:00→14:46)
[2017-06-15] MEDS: IBUPROFEN 400 MG TABLET PO SCH ×3 (06:55→22:31)
[2017-06-15 07:05] LABS: ABSOLUTE EOSINOPHILS # (AUTO) 0.7 10^3/uL (0.0-0.6); ABSOLUTE LYMPHOCYTES (AUTO) 2.5 10^3/uL (0.5-4.7); ABSOLUTE MONOCYTES (AUTO) 1.4 10^3/uL (0.1-1.4); ABSOLUTE NEUT (AUTO) 8.8 10^3/uL (1.7-8.2); BASOPHILS % (AUTO) 0.4 % (0-2); EOSINOPHILS % (AUTO) 5.4 % (0-6); HEMATOCRIT 40.1 % (37.9-51.0); HEMOGLOBIN 13.3 g/dL (13.5-17.0); LYMPHOCYTES % (AUTO) 18.5 % (13-45); MEAN CORPUSCULAR HEMOGLOBIN 27.8 pg (27.0-33.4); MEAN CORPUSCULAR HGB CONC 33.2 g/dL (32.0-36.0); MEAN CORPUSCULAR VOLUME 84 fl (80-97); MONOCYTES % (AUTO) 10.2 % (3-13); PLATELET COUNT 288 10^3/uL (150-450); RED CELL DISTRIBUTION WIDTH 13.1 % (11.5-14.0); SEGMENTED NEUTROPHILS % (AUTO) 65.5 % (42-78); TOTAL CELLS COUNTED % (AUTO) 100 %; WHITE BLOOD COUNT 13.4 10^3/uL (4.0-10.5)
[2017-06-15 07:19] LABS: ANION GAP 11 (5-19); BLOOD UREA NITROGEN 15 mg/dL (7-20); CALCIUM 9.3 mg/dL (8.4-10.2); CARBON DIOXIDE 26 mmol/L (22-30); CHLORIDE 108 mmol/L (98-107); GLUCOSE 89 mg/dL (75-110); POTASSIUM 4.6 mmol/L (3.6-5.0); SODIUM 144.9 mmol/L (137-145)
[2017-06-15] MEDS: PROPRANOLOL HCL 40 MG TABLET PO SCH ×3 (09:27→22:32)
[2017-06-15] MEDS ORDERED: PROPRANOLOL HCL 40 MG TABLET PO ONE (09:30)
[2017-06-15] MEDS: DOCUSATE SODIUM 100 MG CAPSULE PO SCH ×2 (09:34→17:17)
[2017-06-15] MEDS: CEFTRIAXONE SODIUM 1,000 MG in NORMAL SALINE 100 ML IV SCH (09:34)
[2017-06-15] MEDS: OXYCODONE HCL IR 5 MG TABLET PO PRN ×2 (09:41→16:12)
--- NOTE | 2017-06-15 15:34 | PDOC PROGRESS REPORT ---
Subjective Progress Note for:: 06/15/17 Subjective:: Admitted 06/13 for epididymitis. Complains of pain in scrotum still, though continues to improve and swelling much better. No fever or chills, no chest pain or shortness of breath or palpitations. Patient is being followed by urologist Neo and he stated no abscess, and no surgical intervention needed at this time. Recommend continue Rocephin, [id number] ibuprofen, elevate the scrotum. Also has recommended rechecking scrotal ultrasound prior to discharge, and checking kidney ultrasound 06/14 --result of. Today the urologist recommended stopping Rocephin after today's dose and transitioning to p.o. antibiotics by tomorrow watching overnight after starting p.o. antibiotics to ensure no fevers and a white count remaining improved. Reason For Visit: EPIDIDYMITMS Physical Exam Vital Signs: Temp Pulse Resp BP Pulse Ox 98.2 F 71 17 122/74 97 06/15/17 11:43 06/15/17 11:43 06/15/17 11:43 06/15/17 11:43 06/15/17 11:43 Intake & Output 06/14/17 06/15/17 06/16/17 06:59 06:59 06:59 Intake Total 965 350 Output Total 1200 300 Balance -235 50 Weight 107.1 kg 101.8 kg 101.8 kg GENERAL: Well-developed, no acute distress HEENT: Normocephalic/atraumatic NECK supple, no JVD CARDIOVASCULAR: RRR, normal S1-S2 LUNGS: CTA bilaterally ABDOMEN: Soft, NT, NL bowel sounds EXTREMITIES: No edema, clubbing, cyanosis : Edema of scrotum but improved, also improvement in tenderness NEUROLOGICAL: Alert, oriented x 3, nonfocal Results Laboratory Results: 06/15/17 06:22 06/15/17 06:22 06/15/17 06/15/17 06:22 06:22 WBC 13.4 H RBC 4.80 Hgb 13.3 L Hct 40.1 MCV 84 MCH 27.8 MCHC 33.2 RDW 13.1 Plt Count 288 Seg Neutrophils % 65.5 Lymphocytes % 18.5 Monocytes % 10.2 Eosinophils % 5.4 Basophils % 0.4 Absolute Neutrophils 8.8 H Absolute Lymphocytes 2.5 Absolute Monocytes 1.4 Absolute Eosinophils 0.7 H Absolute Basophils 0.0 Sodium 144.9 Potassium 4.6 Chloride 108 H Carbon Dioxide 26 Anion Gap 11 BUN 15 Creatinine 0.78 Est GFR ( Amer) > 60 Est GFR (Non-Af Amer) > 60 Glucose 89 Calcium 9.3 Impressions: Scrotum Ultrasound 06/12/17 22:10 IMPRESSION: 1. Moderate left epididymoorchitis. Asymmetric left paracentral scrotal wall thickening measures 1.6 cm and may indicate scrotal cellulitis. 2. No testicular torsion or mass. Renal Ultrasound 06/14/17 00:00 IMPRESSION: No right or left hydronephrosis 5 to 7 mm right midpole intrarenal nonobstructive calculus Bladder not visualized Assessment & Plan - Plan Summary Plan Summary: (1) Orchitis Is this a current diagnosis for this admission?: Yes Plan: Continue symptomatic management, empiric Rocephin, white blood cell slightly done today although still elevated, follow-up CBC, blood and urine culture, urology consult appreciated. -Urology follow-up appreciated. Recommending scrotal ultrasound prior to discharge. Kidney ultrasound 06/14 as an imaging above. -Urology recommended stopping IV antibiotics after today's dose and starting p.o. antibiotics tomorrow. May recheck scrotal ultrasound after 24 hours of p.o. antibiotics if no fever or increase in white count, and if no abscess repeat scrotal ultrasound, [place] home. (2) Left testicular pain Is this a current diagnosis for this admission?: Yes Plan: Symptomatic management. Elevate scrotum, ibuprofen per urology recommendation.
[2017-06-16] MEDS: ACETAMINOPHEN 325 MG TABLET PO SCH ×3 (00:38→18:19)
[2017-06-16] MEDS: HEPARIN SOD (PORCINE) 5,000 UNIT/ML 1 ML SYRINGE SUBCUT SCH ×4 (00:40→21:55)
[2017-06-16] MEDS: IBUPROFEN 400 MG TABLET PO SCH (06:18)
[2017-06-16 06:28] LABS: ABSOLUTE BASOPHILS # (AUTO) 0.1 10^3/uL (0.0-0.2); ABSOLUTE LYMPHOCYTES (AUTO) 2.8 10^3/uL (0.5-4.7); ABSOLUTE MONOCYTES (AUTO) 1.2 10^3/uL (0.1-1.4); ABSOLUTE NEUT (AUTO) 5.8 10^3/uL (1.7-8.2); BASOPHILS % (AUTO) 0.7 % (0-2); EOSINOPHILS % (AUTO) 9.1 % (0-6); HEMATOCRIT 39.1 % (37.9-51.0); LYMPHOCYTES % (AUTO) 25.6 % (13-45); MEAN CORPUSCULAR HGB CONC 33.2 g/dL (32.0-36.0); MEAN CORPUSCULAR VOLUME 84 fl (80-97); MONOCYTES % (AUTO) 11.2 % (3-13); PLATELET COUNT 311 10^3/uL (150-450); RED BLOOD COUNT 4.64 10^6/uL (4.35-5.55); RED CELL DISTRIBUTION WIDTH 13.1 % (11.5-14.0); SEGMENTED NEUTROPHILS % (AUTO) 53.4 % (42-78); TOTAL CELLS COUNTED % (AUTO) 100 %; WHITE BLOOD COUNT 10.9 10^3/uL (4.0-10.5)
[2017-06-16 06:50] LABS: ANION GAP 12 (5-19); BLOOD UREA NITROGEN 21 mg/dL (7-20); CALCIUM 9.3 mg/dL (8.4-10.2); CARBON DIOXIDE 26 mmol/L (22-30); CHLORIDE 106 mmol/L (98-107); GLUCOSE 80 mg/dL (75-110); POTASSIUM 4.6 mmol/L (3.6-5.0)
--- NOTE | 2017-06-16 10:08 | PDOC PROGRESS REPORT ---
Subjective Progress Note for:: 06/16/17 Subjective:: Admitted 06/13 with scrotal swelling and pain. Today reports pain in scrotum continues to improve as well as swelling. No fever or chills, no chest pain or shortness of breath or palpitations. Patient was followed by urologist Neo and he stated no abscess, and stated no surgical intervention needed at this time. Recommended continue Rocephin, ibuprofen, elevating the scrotum. Also has recommended rechecking scrotal ultrasound prior to discharge, and checking kidney ultrasound--done 06/14 --result as in imaging below. The urologist further recommended stopping Rocephin after yesterday (06/15) dose and transitioning to p.o. antibiotics by today (06/16), watching overnight after starting the p.o. antibiotics to ensure no fevers and that white count is remaining improved. If he remains afebrile and white count remains improved, plan is to re-check scrotal ultrasound tomorrow, and if no abscess patient may be discharged home. Reason For Visit: EPIDIDYMITMS Physical Exam Vital Signs: Temp Pulse Resp BP Pulse Ox 97.6 F 64 16 115/71 98 06/16/17 07:42 06/16/17 07:42 06/16/17 07:42 06/16/17 07:42 06/16/17 07:42 Intake & Output 06/15/17 06/16/17 06/17/17 06:59 06:59 06:59 Intake Total 350 1600 Output Total 300 2500 Balance 50 -900 Weight 101.8 kg 102.7 kg GENERAL: Well-developed, no acute distress NECK supple, no JVD CARDIOVASCULAR: RRR, normal S1-S2 LUNGS: CTA bilaterally ABDOMEN: Soft, NT, NL bowel sounds EXTREMITIES: No edema, clubbing, cyanosis : Edema of scrotum still but greatly improved, also improvement in tenderness NEUROLOGICAL: Alert, oriented x 3, nonfocal Results Laboratory Results: 06/16/17 06:01 06/16/17 06:01 06/16/17 06/16/17 06:01 06:01 WBC 10.9 H RBC 4.64 Hgb 13.0 L Hct 39.1 MCV 84 MCH 28.0 MCHC 33.2 RDW 13.1 Plt Count 311 Seg Neutrophils % 53.4 Lymphocytes % 25.6 Monocytes % 11.2 Eosinophils % 9.1 H Basophils % 0.7 Absolute Neutrophils 5.8 Absolute Lymphocytes 2.8 Absolute Monocytes 1.2 Absolute Eosinophils 1.0 H Absolute Basophils 0.1 Sodium 144.0 Potassium 4.6 Chloride 106 Carbon Dioxide 26 Anion Gap 12 BUN 21 H Creatinine 0.84 Est GFR ( Amer) > 60 Est GFR (Non-Af Amer) > 60 Glucose 80 Calcium 9.3 Impressions: Scrotum Ultrasound 06/12/17 22:10 IMPRESSION: 1. Moderate left epididymoorchitis. Asymmetric left paracentral scrotal wall thickening measures 1.6 cm and may indicate scrotal cellulitis. 2. No testicular torsion or mass. Renal Ultrasound 06/14/17 00:00 IMPRESSION: No right or left hydronephrosis 5 to 7 mm right midpole intrarenal nonobstructive calculus Bladder not visualized Assessment & Plan - Plan Summary Plan Summary: (1) Orchitis Is this a current diagnosis for this admission?: Yes Plan: Continue symptomatic management, empiric Rocephin, white blood cell continues to be improved, follow-up CBC, blood and urine culture, urology consult appreciated. -Urology recommending scrotal ultrasound prior to discharge. Kidney ultrasound as an imaging above. -Urology recommended stopping IV antibiotics after yesterday's dose and starting p.o. antibiotics today. -Doxycycline 100 mg twice daily started. Recommend close follow-up 10 days of these antibiotics. -Urology recommended recheck scrotal ultrasound after 24 hours of p.o. antibiotics, if no fever or increase in white count, and if no abscess on repeat scrotal ultrasound, to [place] home and f/u with him (Dr. Larson) in clinic in 2 weeks. (2) Left testicular pain Is this a current diagnosis for this admission?: Yes Plan: Symptomatic management. Elevate scrotum, ibuprofen per urology recommendation.
[2017-06-16] MEDS ORDERED: IBUPROFEN 400 MG TABLET PO PRN (10:10)
[2017-06-16] MEDS: DOXYCYCLINE HYCLATE 100 MG TABLET PO SCH ×2 (12:11→21:58)
[2017-06-16] MEDS: DOCUSATE SODIUM 100 MG CAPSULE PO SCH ×2 (12:12→18:20)
[2017-06-16] MEDS: PROPRANOLOL HCL 40 MG TABLET PO SCH ×3 (12:14→21:58)
[2017-06-16] MEDS: OXYCODONE HCL IR 5 MG TABLET PO PRN (18:18)
[2017-06-17] MEDS: ACETAMINOPHEN 325 MG TABLET PO SCH ×3 (01:14→16:25)
[2017-06-17] MEDS: HEPARIN SOD (PORCINE) 5,000 UNIT/ML 1 ML SYRINGE SUBCUT SCH ×3 (06:13→21:52)
[2017-06-17] MEDS: PROPRANOLOL HCL 40 MG TABLET PO SCH ×3 (06:14→21:52)
[2017-06-17] MEDS: OXYCODONE HCL IR 5 MG TABLET PO PRN ×2 (07:16→20:17)
[2017-06-17 07:37] LABS: ABSOLUTE BASOPHILS # (AUTO) 0.1 10^3/uL (0.0-0.2); ABSOLUTE LYMPHOCYTES (AUTO) 3.1 10^3/uL (0.5-4.7); ABSOLUTE MONOCYTES (AUTO) 1.2 10^3/uL (0.1-1.4); ABSOLUTE NEUT (AUTO) 6.5 10^3/uL (1.7-8.2); BASOPHILS % (AUTO) 0.6 % (0-2); EOSINOPHILS % (AUTO) 8.4 % (0-6); HEMATOCRIT 41.4 % (37.9-51.0); HEMOGLOBIN 13.7 g/dL (13.5-17.0); LYMPHOCYTES % (AUTO) 26.1 % (13-45); MEAN CORPUSCULAR HEMOGLOBIN 27.7 pg (27.0-33.4); MEAN CORPUSCULAR HGB CONC 33.1 g/dL (32.0-36.0); MEAN CORPUSCULAR VOLUME 84 fl (80-97); MONOCYTES % (AUTO) 10.3 % (3-13); PLATELET COUNT 376 10^3/uL (150-450); RED BLOOD COUNT 4.94 10^6/uL (4.35-5.55); RED CELL DISTRIBUTION WIDTH 13.4 % (11.5-14.0); SEGMENTED NEUTROPHILS % (AUTO) 54.6 % (42-78); TOTAL CELLS COUNTED % (AUTO) 100 %; WHITE BLOOD COUNT 11.9 10^3/uL (4.0-10.5)
[2017-06-17 07:58] LABS: ANION GAP 11 (5-19); BLOOD UREA NITROGEN 17 mg/dL (7-20); CALCIUM 9.7 mg/dL (8.4-10.2); CARBON DIOXIDE 26 mmol/L (22-30); CHLORIDE 105 mmol/L (98-107); GLUCOSE 89 mg/dL (75-110); POTASSIUM 4.8 mmol/L (3.6-5.0); SODIUM 141.9 mmol/L (137-145)
--- NOTE | 2017-06-17 08:39 | PDOC PROGRESS REPORT ---
Subjective Progress Note for:: 06/17/17 Subjective:: Patient is still complaining of moderate pain left testis The swelling and redness have gone down but certainly are still present There is no fever no chills The white blood count is now 11.4 Patient was switched to p.o. doxycycline yesterday Reason For Visit: EPIDIDYMITMS Physical Exam Vital Signs: Temp Pulse Resp BP Pulse Ox 97.6 F 70 18 117/82 96 06/17/17 07:24 06/17/17 07:24 06/17/17 07:24 06/17/17 07:24 06/17/17 07:24 Intake & Output 06/16/17 06/17/17 06/18/17 00:59 00:59 00:59 Intake Total 1600 1000 Output Total 1900 2050 Balance -300 -1050 Weight 101.8 kg 102.7 kg General appearance: PRESENT: no acute distress, well-developed, well-nourished Head exam: PRESENT: atraumatic, normocephalic Eye exam: PRESENT: conjunctiva pink, EOMI, PERRLA. ABSENT: scleral icterus Neck exam: ABSENT: carotid bruit, JVD, lymphadenopathy, thyromegaly Respiratory exam: PRESENT: clear to auscultation chayito. ABSENT: rales, rhonchi, wheezes Cardiovascular exam: PRESENT: RRR. ABSENT: diastolic murmur, rubs, systolic murmur GI/Abdominal exam: PRESENT: normal bowel sounds, soft. ABSENT: distended, guarding, mass, organolmegaly, rebound, tenderness Rectal exam: PRESENT: normal inspection, normal prostate. ABSENT: tenderness Gentrourinary exam: PRESENT: scrotal swelling, testicular tenderness, other - Still extreme swelling of the left scrotum The testes is swollen tender on palpation The skin of the scrotum is very red Extremities exam: PRESENT: full ROM. ABSENT: calf tenderness, clubbing, pedal edema Results Laboratory Results: 06/17/17 06:51 06/17/17 06:51 06/17/17 06/17/17 06:51 06:51 WBC 11.9 H RBC 4.94 Hgb 13.7 Hct 41.4 MCV 84 MCH 27.7 MCHC 33.1 RDW 13.4 Plt Count 376 Seg Neutrophils % 54.6 Lymphocytes % 26.1 Monocytes % 10.3 Eosinophils % 8.4 H Basophils % 0.6 Absolute Neutrophils 6.5 Absolute Lymphocytes 3.1 Absolute Monocytes 1.2 Absolute Eosinophils 1.0 H Absolute Basophils 0.1 Sodium 141.9 Potassium 4.8 Chloride 105 Carbon Dioxide 26 Anion Gap 11 BUN 17 Creatinine 0.81 Est GFR ( Amer) > 60 Est GFR (Non-Af Amer) > 60 Glucose 89 Calcium 9.7 06/14/17 11:45 Penis Gram Stain - Final 06/14/17 11:45 Penis Urethral Culture - Final Skin Shannon No Neisseria Gonorrhoeae 06/14/17 13:00 Clean Catch Midstream Urine Culture - Final NO GROWTH 2 DAYS Impressions: Scrotum Ultrasound 06/12/17 22:10 IMPRESSION: 1. Moderate left epididymoorchitis. Asymmetric left paracentral scrotal wall thickening measures 1.6 cm and may indicate scrotal cellulitis. 2. No testicular torsion or mass. Renal Ultrasound 06/14/17 00:00 IMPRESSION: No right or left hydronephrosis 5 to 7 mm right midpole intrarenal nonobstructive calculus Bladder not visualized Assessment & Plan - Diagnosis (1) Epididymoorchitis Is this a current diagnosis for this admission?: Yes (2) Cellulitis of scrotum Is this a current diagnosis for this admission?: Yes - Time Time Spent with patient: Patient had multiple test and has been now treated for almost 10 days without much improvement Tests for chlamydia and GC were negative Rectal examination today is not suggestive of an acute prostatitis and or perirectal abscess Patient's management needs to be reevaluated Patient has epididymo-orchitis and scrotal cellulitis Ultrasound of the scrotum will be performed as planned We will also order CT of the pelvis with IV contrast We will speak with urology and/or infectious disease when results are available Time Spent with patient: 25-34 minutes
[2017-06-17] MEDS: DOCUSATE SODIUM 100 MG CAPSULE PO SCH ×2 (09:18→17:07)
[2017-06-17] MEDS: DOXYCYCLINE HYCLATE 100 MG TABLET PO SCH ×2 (09:18→21:52)
--- NOTE | 2017-06-17 09:18 | RADIOLOGY REPORT (SQ) ---
EXAM DESCRIPTION: CT PELVIS WITH COMPLETED DATE/TIME: 06/17/2017 9:01 am REASON FOR STUDY: orchitis include scrotum with IV contrast COMPARISON: None. TECHNIQUE: CT scan of the pelvis performed WITH IV CONTRAST. Images reviewed with soft tissue and b one windows. Reconstructed coronal and sagittal MPR images reviewed. All images stored on PACS. All CT scanners at this facility use dose modulation, iterative reconstruction, and/or weight based d osing when appropriate to reduce radiation dose to as low as reasonably achievable (ALARA). [facility]: Dose Right [facility]: CareDose [facility]: Dose Right [facility]: Teradose 4D [facility]: Smart SaleMove RADIATION DOSE: CT Rad equipment meets quality standard of care and radiation dose reduction techniq ues were employed. CTDIvol: 18.8 - 20.8 mGy. DLP: 1967 mGy-cm. mGy. LIMITATIONS: None. FINDINGS: PELVIC BONES: No acute fracture. No worrisome bone lesions. VISUALIZED SPINE: No acute findings. HIP(S): No acute fracture or dislocation. No worrisome bone lesions. PELVIC SOFT TISSUES: Bilateral scrotal hydroceles. Otherwise unremarkable. EXTRAPELVIC SOFT TISSUES: Scrotal wall edema. Otherwise normal. OTHER: No other significant finding. IMPRESSION: BILATERAL SCROTAL HYDROCELES AND SCROTAL WALL EDEMA. OTHERWISE UNREMARKABLE CONTRAST-EN HANCED CT OF THE PELVIS. TECHNICAL DOCUMENTATION: JOB ID: [id number] Quality ID # [id number]: Final reports with documentation of one or more dose reduction techniques (e.g., Au tomated exposure control, adjustment of the mA and/or kV according to patient size, use of iterative reconstruction technique) 2010 [employer]- All Rights Reserved Reading location - IP/workstation name: [email or web address]
--- NOTE | 2017-06-17 09:20 | RADIOLOGY REPORT (SQ) ---
EXAM DESCRIPTION: U/S SCROTUM W/DOPPLER COMPLETED DATE/TIME: 06/17/2017 8:53 am REASON FOR STUDY: testicular pain COMPARISON: 06/12/2017 TECHNIQUE: Static and realtime joseph scale imaging of the scrotum and testes. Selected color Doppler and spectral images recorded to document blood flow. LIMITATIONS: None. FINDINGS: RIGHT: TESTICLE: Normal size. Normal echotexture. Normal blood flow. No mass. EPIDIDYMIS: Normal. HYDROCELE OR VARICOCELE: Small hydrocele. No varicocele. HERNIA OR EXTRA-TESTICULAR MASS: No. OTHER: Scrotal wall thickening. LEFT: TESTICLE: Normal size. Normal echotexture. Normal blood flow. No mass. EPIDIDYMIS: Enlarged heterogeneous in echotexture with increased color flow. HYDROCELE OR VARICOCELE: Complex hydrocele. No varicocele. HERNIA OR EXTRA-TESTICULAR MASS: No. OTHER: Scrotal wall thickening. IMPRESSION: NORMAL TESTES WITHOUT MASS OR TORSION. SONOGRAPHIC FINDINGS AGAIN CONSISTENT WITH LEFT-SIDED EPIDIDYMITIS WITH COMPLEX LEFT HYDROCELE AND SM ALL RIGHT HYDROCELE. TECHNICAL DOCUMENTATION: JOB ID: [id number]- All Rights Reserved Reading location - IP/workstation name: [email or web address]
[2017-06-17] MEDS ORDERED: LEVOFLOXACIN 750 MG/D5W RTU 750 MG/150 ML RTUPB IV ONE (17:00)
[2017-06-17] MEDS ORDERED: MEROPENEM 1 GM VIAL INJ PRN (17:41)
[2017-06-17] MEDS ORDERED: MEROPENEM 1 GM VIAL ONE (18:06)
[2017-06-17] MEDS: MEROPENEM 1 GM in NORMAL SALINE 50 ML IV SCH (18:13)
[2017-06-18] MEDS: MEROPENEM 1 GM in NORMAL SALINE 50 ML IV SCH ×3 (02:00→18:37)
[2017-06-18] MEDS: ACETAMINOPHEN 325 MG TABLET PO SCH ×3 (02:39→17:27)
[2017-06-18] MEDS: HEPARIN SOD (PORCINE) 5,000 UNIT/ML 1 ML SYRINGE SUBCUT SCH ×3 (06:20→21:56)
[2017-06-18] MEDS: PROPRANOLOL HCL 40 MG TABLET PO SCH ×3 (06:20→21:53)
--- NOTE | 2017-06-18 08:16 | PDOC PROGRESS REPORT ---
Subjective Progress Note for:: 06/18/17 Subjective:: Patient states he is feeling a little better Pain is less ; decreased redness of the left scrotum No fever no chills Reason For Visit: EPIDIDYMITMS Physical Exam Vital Signs: Temp Pulse Resp BP Pulse Ox 98.7 F 84 17 119/79 93 06/17/17 23:56 06/17/17 23:56 06/17/17 23:56 06/17/17 23:56 06/17/17 23:56 Intake & Output 06/17/17 06/18/17 06/19/17 00:59 00:59 00:59 Intake Total 1000 960 975 Output Total 2050 1950 350 Balance -1050 -990 625 Weight 102.7 kg General appearance: PRESENT: no acute distress, cooperative Head exam: PRESENT: atraumatic, normocephalic Eye exam: PRESENT: conjunctiva pink, EOMI, PERRLA. ABSENT: scleral icterus Neck exam: ABSENT: carotid bruit, JVD, lymphadenopathy, thyromegaly Respiratory exam: PRESENT: clear to auscultation chayito. ABSENT: rales, rhonchi, wheezes Cardiovascular exam: PRESENT: RRR. ABSENT: diastolic murmur, rubs, systolic murmur GI/Abdominal exam: PRESENT: normal bowel sounds, soft. ABSENT: distended, guarding, mass, organolmegaly, rebound, tenderness Gentrourinary exam: PRESENT: other - Left scrotum still somewhat swollen There is decreased redness and increased warmth of the skin to touch and decreased tenderness The testis is still swollen firm tender on palpation Results Laboratory Results: 06/17/17 06:51 06/17/17 06:51 06/17/17 06:51 C-Reactive Protein 42.7 H 06/14/17 11:45 Penis Gram Stain - Final 06/14/17 11:45 Penis Urethral Culture - Final Skin Shannon No Neisseria Gonorrhoeae Impressions: Renal Ultrasound 06/14/17 00:00 IMPRESSION: No right or left hydronephrosis 5 to 7 mm right midpole intrarenal nonobstructive calculus Bladder not visualized Scrotum Ultrasound 06/17/17 07:00 IMPRESSION: NORMAL TESTES WITHOUT MASS OR TORSION. SONOGRAPHIC FINDINGS AGAIN CONSISTENT WITH LEFT-SIDED EPIDIDYMITIS WITH COMPLEX LEFT HYDROCELE AND SMALL RIGHT HYDROCELE. Pelvis CT 06/17/17 07:52 IMPRESSION: BILATERAL SCROTAL HYDROCELES AND SCROTAL WALL EDEMA. OTHERWISE UNREMARKABLE CONTRAST-ENHANCED CT OF THE PELVIS. Assessment & Plan - Diagnosis (1) Epididymoorchitis Is this a current diagnosis for this admission?: Yes (2) Cellulitis of scrotum Is this a current diagnosis for this admission?: Yes - Time Time Spent with patient: Treatment was initiated yesterday with meropenem to cover for gram-negative patient is allergic to Levaquin We will continue meropenem and doxycycline until almost complete resolution of the epididymitis We would expect the patient to remain in the hospital for another 48-72 hours until he is clinically improved Will follow CBC and CRP is Time Spent with patient: 25-34 minutes - Inpatient Certification Based on my medical assessment, after consideration of the patient's comorbidities, presenting symptoms, or acuity I expect that the services needed warrant INPATIENT care.: Yes I certify that my determination is in accordance with my understanding of Medicare's requirements for reasonable and necessary INPATIENT services [42 CFR 412.3e].: Yes Medical Necessity: Need for IV Antibiotics
[2017-06-18] MEDS: DOXYCYCLINE HYCLATE 100 MG TABLET PO SCH ×2 (09:31→21:53)
[2017-06-18] MEDS: DOCUSATE SODIUM 100 MG CAPSULE PO SCH ×2 (09:48→17:45)
[2017-06-18] MEDS ORDERED: LEVOFLOXACIN 750 MG/D5W RTU 750 MG/150 ML RTUPB IV SCH (18:00)
[2017-06-19] MEDS: ACETAMINOPHEN 325 MG TABLET PO SCH ×4 (00:09→23:25)
[2017-06-19] MEDS: MEROPENEM 1 GM in NORMAL SALINE 50 ML IV SCH ×3 (02:46→18:33)
[2017-06-19] MEDS: PROPRANOLOL HCL 40 MG TABLET PO SCH ×3 (06:18→23:15)
[2017-06-19] MEDS: HEPARIN SOD (PORCINE) 5,000 UNIT/ML 1 ML SYRINGE SUBCUT SCH ×3 (06:18→23:15)
[2017-06-19 07:08] LABS: HEMATOCRIT 43.5 % (37.9-51.0); HEMOGLOBIN 14.5 g/dL (13.5-17.0); MEAN CORPUSCULAR HEMOGLOBIN 27.8 pg (27.0-33.4); MEAN CORPUSCULAR HGB CONC 33.3 g/dL (32.0-36.0); MEAN CORPUSCULAR VOLUME 84 fl (80-97); PLATELET COUNT 360 10^3/uL (150-450); RED BLOOD COUNT 5.21 10^6/uL (4.35-5.55); RED CELL DISTRIBUTION WIDTH 13.4 % (11.5-14.0); WHITE BLOOD COUNT 12.8 10^3/uL (4.0-10.5)
[2017-06-19 07:45] LABS: ABSOLUTE LYMPHOCYTES# (MANUAL) 3.5 10^3/uL (0.5-4.7); ABSOLUTE MONOCYTES # (MANUAL) 0.8 10^3/uL (0.1-1.4); ABSOLUTE NEUTROPHILS# (MANUAL) 7.4 10^3/uL (1.7-8.2); BAND NEUTROPHILS % (MANUAL) 3 % (3-5); BASOPHILS % (MANUAL) 3 % (0-2); EOSINOPHILS % (MANUAL) 6 % (0-6); LYMPHOCYTES % (MANUAL) 24 % (13-45); MONOCYTES % (MANUAL) 6 % (3-13); SEGMENTED NEUTROPHILS % (MAN) 55 % (42-78); TOTAL CELLS COUNTED 100
[2017-06-19 07:54] LABS: PLATELET COMMENT ADEQUATE; POLYCHROMASIA SLIGHT; TOXIC GRANULATION 1+
[2017-06-19] MEDS: DOXYCYCLINE HYCLATE 100 MG TABLET PO SCH ×2 (10:12→23:14)
[2017-06-19] MEDS: OXYCODONE HCL IR 5 MG TABLET PO PRN ×2 (10:24→23:26)
[2017-06-19] MEDS: DOCUSATE SODIUM 100 MG CAPSULE PO SCH ×2 (10:55→18:11)
--- NOTE | 2017-06-19 13:51 | PDOC PROGRESS REPORT ---
Subjective Progress Note for:: 06/19/17 Subjective:: Patient is feeling better There is less redness and swelling of the left testis Is a lot more comfortable No fever no chills Reason For Visit: EPIDIDYMITMS Physical Exam Vital Signs: Temp Pulse Resp BP Pulse Ox 98.1 F 104 H 14 133/90 H 97 06/19/17 13:00 06/19/17 13:00 06/19/17 13:00 06/19/17 13:00 06/19/17 13:00 Intake & Output 06/18/17 06/19/17 06/20/17 00:59 00:59 00:59 Intake Total 960 3695 1371 Output Total 1950 2250 1300 Balance -990 1445 71 Weight 103.8 kg No acute distress alert and awake Pupils are PERRLA extraocular motor intact Neck supple Heart regular rhythm no murmur no gallop Lungs clear abdomen soft nontender Genitals Left testis still somewhat swollen and firm and tender on palpation Scrotum no redness decreased swelling; decreased tenderness on palpation Results Laboratory Results: 06/19/17 06:39 06/17/17 06:51 06/19/17 06/19/17 06:39 06:39 WBC 12.8 H RBC 5.21 Hgb 14.5 Hct 43.5 MCV 84 MCH 27.8 MCHC 33.3 RDW 13.4 Plt Count 360 Seg Neutrophils % Not Reportable Lymphocytes % Not Reportable Monocytes % Not Reportable Eosinophils % Not Reportable Basophils % Not Reportable Absolute Neutrophils Not Reportable Absolute Lymphocytes Not Reportable Absolute Monocytes Not Reportable Absolute Eosinophils Not Reportable Absolute Basophils Not Reportable C-Reactive Protein 13.3 H Impressions: Renal Ultrasound 06/14/17 00:00 IMPRESSION: No right or left hydronephrosis 5 to 7 mm right midpole intrarenal nonobstructive calculus Bladder not visualized Scrotum Ultrasound 06/17/17 07:00 IMPRESSION: NORMAL TESTES WITHOUT MASS OR TORSION. SONOGRAPHIC FINDINGS AGAIN CONSISTENT WITH LEFT-SIDED EPIDIDYMITIS WITH COMPLEX LEFT HYDROCELE AND SMALL RIGHT HYDROCELE. Pelvis CT 06/17/17 07:52 IMPRESSION: BILATERAL SCROTAL HYDROCELES AND SCROTAL WALL EDEMA. OTHERWISE UNREMARKABLE CONTRAST-ENHANCED CT OF THE PELVIS. Assessment & Plan - Diagnosis (1) Epididymoorchitis Is this a current diagnosis for this admission?: Yes (2) Cellulitis of scrotum Is this a current diagnosis for this admission?: Yes - Time Time Spent with patient: Patient appears greatly improved at this time Noted that CRP has decreased to 14 The white blood count still remains somewhat elevated We will continue IV imipenem for another 24 hours Reevaluate patient in a.m. We will likely discharge patient in 24 hours on Levaquin and doxycycline Time Spent with patient: 25-34 minutes - Inpatient Certification Based on my medical assessment, after consideration of the patient's comorbidities, presenting symptoms, or acuity I expect that the services needed warrant INPATIENT care.: Yes I certify that my determination is in accordance with my understanding of Medicare's requirements for reasonable and necessary INPATIENT services [42 CFR 412.3e].: Yes Medical Necessity: Need for IV Antibiotics
[2017-06-20] MEDS: MEROPENEM 1 GM in NORMAL SALINE 50 ML IV SCH ×2 (01:50→09:28)
[2017-06-20] MEDS: PROPRANOLOL HCL 40 MG TABLET PO SCH (06:27)
[2017-06-20] MEDS: HEPARIN SOD (PORCINE) 5,000 UNIT/ML 1 ML SYRINGE SUBCUT SCH (06:29)
[2017-06-20 07:13] LABS: HEMATOCRIT 42.8 % (37.9-51.0); HEMOGLOBIN 14.2 g/dL (13.5-17.0); MEAN CORPUSCULAR HEMOGLOBIN 27.7 pg (27.0-33.4); MEAN CORPUSCULAR HGB CONC 33.2 g/dL (32.0-36.0); MEAN CORPUSCULAR VOLUME 83 fl (80-97); PLATELET COUNT 351 10^3/uL (150-450); RED BLOOD COUNT 5.13 10^6/uL (4.35-5.55); RED CELL DISTRIBUTION WIDTH 13.2 % (11.5-14.0); WHITE BLOOD COUNT 14.6 10^3/uL (4.0-10.5)
[2017-06-20 08:00] LABS: ABSOLUTE LYMPHOCYTES# (MANUAL) 3.4 10^3/uL (0.5-4.7); ABSOLUTE MONOCYTES # (MANUAL) 0.6 10^3/uL (0.1-1.4); ABSOLUTE NEUTROPHILS# (MANUAL) 10.1 10^3/uL (1.7-8.2); BAND NEUTROPHILS % (MANUAL) 3 % (3-5); BASOPHILS % (MANUAL) 0 % (0-2); EOSINOPHILS % (MANUAL) 4 % (0-6); LYMPHOCYTES % (MANUAL) 19 % (13-45); METAMYELOCYTES % (MANUAL) 3 % (0); MONOCYTES % (MANUAL) 4 % (3-13); MYELOCYTES % (MANUAL) 3 % (0); PROMYELOCYTES % (MANUAL) 1 % (0); SEGMENTED NEUTROPHILS % (MAN) 59 % (42-78); TOTAL CELLS COUNTED 100
[2017-06-20 08:01] LABS: PLATELET COMMENT ADEQUATE
[2017-06-20 08:02] LABS: RBC MORPHOLOGY COMMENT NORMO-CYTIC/CHROMIC; TOXIC GRANULATION 1+
[2017-06-20] MEDS: ACETAMINOPHEN 325 MG TABLET PO SCH (08:35)
[2017-06-20] MEDS: DOCUSATE SODIUM 100 MG CAPSULE PO SCH (09:11)
[2017-06-20] MEDS: DOXYCYCLINE HYCLATE 100 MG TABLET PO SCH (09:28)
[2017-06-20 10:36] VITALS: BP 133/90
[2017-06-20 14:37] LABS: PATH REVIEW PATHOLOGIST REVIEWED
--- NOTE | 2017-06-21 16:56 | PDOC DISCHARGE SUMMARY ---
General - Admit/Disc Date/PCP Admission Date/Primary Care Provider: 06/13/17 01:59 CHASE HALL MD Discharge Date: 06/20/17 - Discharge Diagnosis (1) Epididymoorchitis Is this a current diagnosis for this admission?: Yes (2) Cellulitis of scrotum Is this a current diagnosis for this admission?: Yes - Additional Information Resuscitation Status: Full Code Discharge Diet: As Tolerated Discharge Activity: Activity As Tolerated Prescriptions: Cefpodoxime Proxetil [Vantin 200 mg Tablet] 1 tab PO Q12 #28 tab Doxycycline Hyclate [Vibramycin 100 mg Tablet] 100 mg PO Q12 #28 tablet Home Medications: Propranolol HCl 40 mg PO Q8 #90 tablet 06/03/16 Cefpodoxime Proxetil [Vantin 200 mg Tablet] 1 tab PO Q12 #28 tab 06/20/17 Doxycycline Hyclate [Vibramycin 100 mg Tablet] 100 mg PO Q12 #28 tablet History of Present Illness Patient complains of: swelling pain left testis History of Present Illness: ANGEL SHORE is a 32 year old male with past medical history of Vital disease on propanolol. Patient presents with follow-up of left testicular epididymitis , swelling and pain patient was seen treated and discharged 4 days ago with Keflex without significant improvement. In the emergency room CBC reveals leukocytosis of 18,000, ultrasound reveals acute epididymitis without torsion he started on IV Rocephin for the hospitalist for admission. Patient admits to single episode several years ago, denies exceptional STD risk, Chlamydia gonorrhea returned negative from 4 days ago. Hospital Course Hospital Course: 1- epididymo orchitis scrotal US was performed showing normal testis no torsion Lt sided epididymitis comlex left hydrocele small rt hydrocele scrotal wall tickening CT pelvis showed bilateral hydroceles and scrotal edema Patient was initially treated with doxycycline - he did not improve the left testis was persistantly swollen ,red to touch and extremely painful patient stated had an allergy to Levaquin we initiated meropenem IV and within 48 hours had marked improvement with decreased redness swelling and pain Patient was discharged on vantin and doxycycline po for 2 weeks Physical Exam Vital Signs: Temp Pulse Resp BP Pulse Ox 97.8 F 57 L 16 133/90 H 96 06/20/17 10:26 06/20/17 10:26 06/20/17 10:26 06/20/17 10:26 06/20/17 10:26 Intake & Output 06/20/17 06/21/17 06/22/17 00:59 00:59 00:59 Intake Total 2394 1375 Output Total 1800 1350 Balance 594 25 Weight 103.8 kg 105.9 kg No acute distress alert and awake Pupils are PERRLA extraocular motor intact Neck supple Heart regular rhythm no murmur no gallop Lungs clear abdomen soft nontender Genitals Left testis still somewhat swollen and firm and tender on palpation Scrotum no redness decreased swelling; decreased tenderness on palpation Results Laboratory Results: 06/20/17 07:02 06/17/17 06:51 Impressions: Renal Ultrasound 06/14/17 00:00 IMPRESSION: No right or left hydronephrosis 5 to 7 mm right midpole intrarenal nonobstructive calculus Bladder not visualized Scrotum Ultrasound 06/17/17 07:00 IMPRESSION: NORMAL TESTES WITHOUT MASS OR TORSION. SONOGRAPHIC FINDINGS AGAIN CONSISTENT WITH LEFT-SIDED EPIDIDYMITIS WITH COMPLEX LEFT HYDROCELE AND SMALL RIGHT HYDROCELE. Pelvis CT 06/17/17 07:52 IMPRESSION: BILATERAL SCROTAL HYDROCELES AND SCROTAL WALL EDEMA. OTHERWISE UNREMARKABLE CONTRAST-ENHANCED CT OF THE PELVIS. Qualifiers - * PATEINT BEING DISCHARGED WITH ANY OF THE FOLLOWING DIAGNOSIS?: No Plan Discharge Plan: patient was discharged and referred to Urology Clinic as an outpatient
== END 2017-06-20 11:00 | disposition home or self-care (01) | DRG 728 ==
LOC: ER 21:25 → EH 06-13 00:37 → OBSVTOIN 06-13 01:59 → EEVIPCON 06-13 01:59 → 5 06-13 02:00 → 2N 06-13 23:40
PROVIDERS: ADMIT Internal Medicine; ATTEND Internal Medicine
PROC: 3E0F73Z Introduction of Anti-inflammatory into Respiratory Tract, Via Natural or Artificial Opening (ICD-10-PCS; principal; 2017-06-13)
DX: N45.3 Epididymo-orchitis (principal); A18.01 Tuberculosis of spine; N49.2 Inflammatory disorders of scrotum; N43.3 Hydrocele, unspecified; I10 Essential (primary) hypertension; F31.9 Bipolar disorder, unspecified; F43.10 Post-traumatic stress disorder, unspecified; K58.9 Irritable bowel syndrome, unspecified; F41.9 Anxiety disorder, unspecified; Z88.6 Allergy status to analgesic agent
CPT/HCPCS: 36415; 72193; 76770; 76870; 80048; 81001; 85025; 86140; 87040; 87070; 87086; 87205; 93976; 96361; 96365; 96375; 96376; 99285; J0696; J1644; J1956; J2185; J2270; J3490; J7030

== ENCOUNTER 2017-07-20 21:58 | Emergency (ER) | payer SELFPAY ==
[2017-07-20] MEDS ORDERED: KETOROLAC TROMETHAMINE INJ/PF 30 MG/1 ML SDV IV ONE (22:51)
[2017-07-20] MEDS ORDERED: MORPHINE SULFATE 10 MG/ML INJ IV PRN (22:51)
[2017-07-20 23:41] LABS: ABSOLUTE BASOPHILS # (AUTO) 0.1 10^3/uL (0.0-0.2); ABSOLUTE EOSINOPHILS # (AUTO) 0.7 10^3/uL (0.0-0.6); ABSOLUTE LYMPHOCYTES (AUTO) 3.7 10^3/uL (0.5-4.7); ABSOLUTE MONOCYTES (AUTO) 0.9 10^3/uL (0.1-1.4); ABSOLUTE NEUT (AUTO) 7.2 10^3/uL (1.7-8.2); BASOPHILS % (AUTO) 0.8 % (0-2); EOSINOPHILS % (AUTO) 5.6 % (0-6); HEMATOCRIT 45.4 % (37.9-51.0); HEMOGLOBIN 15.2 g/dL (13.5-17.0); LYMPHOCYTES % (AUTO) 29.4 % (13-45); MEAN CORPUSCULAR HEMOGLOBIN 27.9 pg (27.0-33.4); MEAN CORPUSCULAR HGB CONC 33.6 g/dL (32.0-36.0); MEAN CORPUSCULAR VOLUME 83 fl (80-97); MONOCYTES % (AUTO) 7.4 % (3-13); PLATELET COUNT 273 10^3/uL (150-450); RED BLOOD COUNT 5.47 10^6/uL (4.35-5.55); RED CELL DISTRIBUTION WIDTH 13.9 % (11.5-14.0); SEGMENTED NEUTROPHILS % (AUTO) 56.8 % (42-78); TOTAL CELLS COUNTED % (AUTO) 100 %; WHITE BLOOD COUNT 12.7 10^3/uL (4.0-10.5)
[2017-07-20 23:57] LABS: ANION GAP 14 (5-19); BLOOD UREA NITROGEN 17 mg/dL (7-20); CALCIUM 10.2 mg/dL (8.4-10.2); CARBON DIOXIDE 25 mmol/L (22-30); CHLORIDE 105 mmol/L (98-107); GLUCOSE 102 mg/dL (75-110); POTASSIUM 4.3 mmol/L (3.6-5.0)
[2017-07-21] MEDS ORDERED: CEFPODOXIME 200 MG TABLET PO ONE (00:04)
[2017-07-21] MEDS ORDERED: DOXYCYCLINE HYCLATE 100 MG TABLET PO ONE (00:04)
--- NOTE | 2017-07-21 00:05 | ER Document Report ---
ED General - General Chief Complaint: Scrotal Pain, Acute Onset Stated Complaint: GROIN PAIN Time Seen by Provider: 07/20/17 23:32 Notes: Patient is a 32-year-old male without chronic medical problems, recently admitted for a scrotal cellulitis as well as epididymoorchitis who presents with 24 hours of increasing left testicular discomfort and mild left-sided scrotal swelling. He states this feels somewhat similar to when he was seen last month for similar symptoms although not as severe. He notes a stabbing, irritating pain mostly towards the left side of the scrotum and testicle. He states touching the area worsens the pain. He has not tried him to improve the pain. He never followed up with urology as recommended after being discharged. He does also admits to having been "spotty" with completing his antibiotics. He has not had any fever or constitutional symptoms, no dysuria or penile discharge. No high risk sexual practices. TRAVEL OUTSIDE OF THE [place] IN LAST 30 DAYS: No - Related Data Allergies/Adverse Reactions: [facility]] Allergy (Severe, Verified 06/03/16 05:46) Swelling of Throat levaquin Allergy (Uncoded 06/21/17 17:11) Past Medical History - General Information source: Patient - Social History Smoking Status: Former Smoker Chew tobacco use (# tins/day): No Frequency of alcohol use: Occasional Drug Abuse: None Lives with: Alone Family History: Other - Migraine Patient has suicidal ideation: No Patient has homicidal ideation: No - Past Medical History Cardiac Medical History: Reports: Hx Hypertension - DX MORE THAN FIVE YEARS AGO Denies: Hx Coronary Artery Disease, Hx Heart Attack Pulmonary Medical History: Reports: Hx Asthma - DX AT AGE SE[age] Denies: Hx Bronchitis, Hx COPD, Hx Pneumonia Neurological Medical History: Reports: Hx Seizures. Denies: Hx Cerebrovascular Accident Endocrine Medical History: Denies: Hx Diabetes Mellitus Type 2 Renal/ Medical History: Denies: Hx Peritoneal Dialysis GI Medical History: Reports: Hx Irritable Bowel. Denies: Hx Crohn's Disease, Hx Gastritis, Hx Gastroesophageal Reflux Disease, Hx Hepatitis Musculoskeltal Medical History: Denies Hx Arthritis Skin Medical History: Denies Hx MRSA Psychiatric Medical History: Reports: Hx Anxiety - DX IN 2007, Hx Bipolar Disorder - DX IN 2007, Hx Depression, Hx Post Traumatic Stress Disorder - DX IN 2007 Infectious Medical History: Denies: Hx Hepatitis, Hx MRSA Past Surgical History: Reports: Hx Abdominal Surgery - APPENDIX, Hx Appendectomy , Hx Orthopedic Surgery - left wrist. Denies: Hx Adenoidectomy, Hx Pacemaker - Immunizations Immunizations up to date: Yes Hx Diphtheria, Pertussis, Tetanus Vaccination: Yes Review of Systems - Review of Systems Notes: Constitutional: Negative for fever. HENT: Negative for sore throat. Eyes: Negative for visual changes. Cardiovascular: Negative for chest pain. Respiratory: Negative for shortness of breath. Gastrointestinal: Negative for abdominal pain, vomiting or diarrhea. Genitourinary: Positive for left testicular pain and scrotal pain Musculoskeletal: Negative for back pain. Skin: Negative for rash. Neurological: Negative for headaches, weakness or numbness. 10 point ROS negative except as marked above and in HPI. Physical Exam - Vital signs Vitals: Temp Pulse BP Pulse Ox 98.9 F 91 145/89 H 98 07/20/17 22:36 07/20/17 22:36 07/20/17 22:36 07/20/17 22:36 Interpretation: Hypertensive Notes: PHYSICAL EXAMINATION: GENERAL: Well-appearing, well-nourished and in no acute distress. HEAD: Atraumatic, normocephalic. EYES: Pupils equal round and reactive to light, extraocular movements intact, sclera anicteric, conjunctiva are normal. ENT: nares patent, oropharynx clear without exudates. Moist mucous membranes. NECK: Normal range of motion, supple without lymphadenopathy LUNGS: Breath sounds clear to auscultation bilaterally and equal. No wheezes rales or rhonchi. HEART: Regular rate and rhythm without murmurs ABDOMEN: Soft, nontender, normoactive bowel sounds. No guarding, no rebound. No masses appreciated. : Global scrotal erythema, mild pain on palpation of the left epididymis as well as left testicle. Cremasteric reflex again absent bilaterally. No penile lesions or discharge EXTREMITIES: Normal range of motion, no pitting or edema. No cyanosis. NEUROLOGICAL: No focal neurological deficits. Moves all extremities spontaneously and on command. PSYCH: Normal mood, normal affect. SKIN: Warm, Dry, normal turgor, no rashes or lesions noted. Course - Re-evaluation Re-evalutation: 07/21/17 00:04 Patient presents with recurrence of left sided scrotal and testicular pain similar to his prior presentation although he notes not nearly as severe. Saw this patient when he initially developed orchitis but failed to respond cephalexin that was prescribed. His testicle does not appeared nearly as swollen or edematous and is not as painful as that prior examination. Will proceed with a repeat scrotal ultrasound, urinalysis and will reinitiate cefpodoxime and doxycycline which is what he was treated with successfully on his most recent hospitalization. The patient did fail to follow-up with urology and have encouraged him to do so at his earliest ability as I do not have a ready examination for why he had such rapid recurrence of his orchitis which I suspect is the recurrent diagnosis today. 07/21/17 01:51 Labs unremarkable, ultrasound does show findings consistent with recurrent epididymitis as well as a left-sided varicocele. Patient will be started back on doxycycline as well as cefpodoxime. I have asked that he follow-up with urology as scheduled and if emphasized with him that he does definitively need to follow-up with urology especially given the rapid recurrence of today's presentation. At this time will discharge with return precautions and follow- up recommendations. Verbal discharge instructions given a the bedside and opportunity for questions given. Medication warnings reviewed. Patient is in agreement with this plan and has verbalized understanding of return precautions and the need for primary care follow-up in the next 24-72 hours. - Vital Signs Vital signs: Temp Pulse Resp BP Pulse Ox 98.5 F 79 16 107/73 98 07/21/17 02:00 07/21/17 02:00 07/21/17 02:00 07/21/17 02:00 07/20/17 22:36 - Laboratory Result Diagrams: 07/20/17 23:22 07/20/17 23:22 Laboratory results interpreted by me: 07/20/17 23:22 WBC 12.7 H Absolute Eosinophils 0.7 H - Diagnostic Test Radiology reviewed: Reports reviewed Discharge - Discharge Clinical Impression: Epididymoorchitis, Cellulitis of scrotum Condition: Good Disposition: HOME, SELF-CARE Additional Instructions: Please take all antibiotics as prescribed. Please follow-up with urology as originally recommended as I am worried that she had a rapid recurrence of your symptoms after antibiotics were completed. Please return to emergency department immediately if you have worsening of your pain, increased swelling to the area, fever greater than 100.4F, or any other symptoms that are worrisome to you. Prescriptions: Cefpodoxime Proxetil 200 mg PO BID #28 tablet Doxycycline Hyclate 100 mg PO BID #28 tablet
[2017-07-21 00:21] LABS: APPEARANCE,URINE CLEAR; BILIRUBIN,URINE NEGATIVE (NEGATIVE); COLOR,URINE YELLOW; GLUCOSE, URINE NEGATIVE (NEGATIVE); KETONES,URINE NEGATIVE (NEGATIVE); LEUKOCYTE ESTERASE,URINE NEGATIVE (NEGATIVE); NITRITE,URINE NEGATIVE (NEGATIVE); PROTEIN,URINE NEGATIVE (NEGATIVE); UROBILINOGEN,URINE NEGATIVE mg/dL (<2.0)
--- NOTE | 2017-07-21 00:59 | RADIOLOGY REPORT (SQ) ---
EXAM DESCRIPTION: Complete testicular ultrasound. CLINICAL HISTORY: 32 years Male, testicular pain COMPARISON: 06/17/2017 TECHNIQUE: Real-time sonographic images of the scrotal contents obtained using a linear multi hertz transducer. Color and spectral Doppler imaging was also obtained. FINDINGS: Testicles: The right testicle measures 4.3 x 2.5 x 2.3 cm. The left testicle measures 3.4 x 3.1 x 1.7 cm. No solid intratesticular mass identified. Homogenous echogenicity of the testicles. Epididymis: The right epididymis measures 1.9 x 1.0 x 0.6 cm. The left epididymis measures 1.3 x 1.7 x 1.0 cm. Heterogeneous appearance of the left epididymis. Hydrocele:No hydrocele. Blood flow:Normal arterial and venous blood flow identified bilaterally. Other: Bilateral scrotal wall thickening identified. Dilated left peritesticular veins. IMPRESSION: 1. Heterogeneous epididymis. This could be seen with epididymitis. 2. Bilateral scrotal wall thickening. This could be related to edema or cellulitis. 3. Findings suggest left varicocele.
[2017-07-21 01:25] LABS: CHLAM PCR NOT DETECTED (NOT DETECT); GON PCR NOT DETECTED (NOT DETECT)
[2017-07-21] MEDS ORDERED: HYDROCODONE/ACETAMINOPHEN 5-325 MG (6 TAB/ER DISP) PO PRN (01:54)
[2017-07-21 02:02] VITALS: BP 107/73
== END 2017-07-21 02:10 | disposition home or self-care (01) ==
LOC: ER 21:58 → EEVIPCON 21:58 → ER 07-21 02:10
DX: N45.1 Epididymitis (principal); N49.2 Inflammatory disorders of scrotum; N50.82 Scrotal pain; I10 Essential (primary) hypertension; Z87.891 Personal history of nicotine dependence
CPT/HCPCS: 99284; 36415; 87086; 85025; 80048; 81001; 87491; 87591; 76870; 93976; J2270

== ENCOUNTER 2017-12-03 16:56 | Emergency (ER) | payer SELFPAY ==
[2017-12-03] MEDS ORDERED: OXYCODONE-ACETAMINOPHEN 5-325 MG TABLET PO ONE (17:27)
--- NOTE | 2017-12-03 17:29 | ER Document Report ---
ED Medical Screen (RME) - General Chief Complaint: Testicular Pain Stated Complaint: TESTICULAR PAIN,BLOOD IN URINE Time Seen by Provider: 12/03/17 17:04 Mode of Arrival: Ambulatory Information source: Patient Notes: 32-year-old male presents with left testicular pain that started 30 minutes prior to arrival while he was at work. Patient states that he has had prior similar symptoms which required admission in June 2017. Patient has associated hematuria. I have greeted and performed a rapid initial assessment of this patient. A comprehensive ED assessment and evaluation of the patient, analysis of test results and completion of medical decision making process we will be contacted by additional ED providers. PHYSICAL EXAMINATION: Vital signs reviewed GENERAL: Well-appearing, well-nourished and in no acute distress. LUNGS: No respiratory distress Musculoskeletal: Normal range of motion NEUROLOGICAL: Normal speech, normal gait. PSYCH: Normal mood, normal affect. SKIN: Warm, Dry, normal turgor, no rashes or lesions noted. TRAVEL OUTSIDE OF THE [place] IN LAST 30 DAYS: No - HPI Onset: Just prior to arrival Onset/Duration: Sudden Quality of pain: Throbbing Severity: Moderate Associated Symptoms: Abdominal pain, Other - Hematuria Exacerbated by: Movement Relieved by: Denies Similar symptoms previously: Yes Recently seen / treated by doctor: No - Related Data Smoking: Non-smoker Frequency of alcohol use: None Drug Abuse: None Allergies/Adverse Reactions: tramadol HCl [From [facility]] Allergy (Severe, Verified 06/03/16 05:46) Swelling of Throat levaquin Allergy (Uncoded 06/21/17 17:11) Past Medical History - Past Medical History Cardiac Medical History: Reports: Hx Hypertension - DX MORE THAN FIVE YEARS AGO Denies: Hx Coronary Artery Disease, Hx Heart Attack Pulmonary Medical History: Reports: Hx Asthma - DX AT AGE [age] Denies: Hx Bronchitis, Hx COPD, Hx Pneumonia Neurological Medical History: Reports: Hx Seizures. Denies: Hx Cerebrovascular Accident Endocrine Medical History: Denies: Hx Diabetes Mellitus Type 2 Renal/ Medical History: Denies: Hx Peritoneal Dialysis GI Medical History: Reports: Hx Irritable Bowel. Denies: Hx Crohn's Disease, Hx Gastritis, Hx Gastroesophageal Reflux Disease, Hx Hepatitis Musculoskeltal Medical History: Denies Hx Arthritis Skin Medical History: Denies Hx MRSA Psychiatric Medical History: Reports: Hx Anxiety - DX IN 2007, Hx Bipolar Disorder - DX IN 2008, Hx Depression, Hx Post Traumatic Stress Disorder - DX IN 2008 Infectious Medical History: Denies: Hx Hepatitis, Hx MRSA Past Surgical History: Reports: Hx Abdominal Surgery - APPENDIX, Hx Appendectomy , Hx Orthopedic Surgery - left wrist. Denies: Hx Adenoidectomy, Hx Pacemaker - Immunizations Immunizations up to date: Yes Hx Diphtheria, Pertussis, Tetanus Vaccination: Yes
[2017-12-03 18:20] LABS: APPEARANCE,URINE SLIGHTLY-CLOUDY; BILIRUBIN,URINE NEGATIVE (NEGATIVE); COLOR,URINE AMBER; GLUCOSE, URINE NEGATIVE (NEGATIVE)
[2017-12-03 18:21] LABS: KETONES,URINE NEGATIVE (NEGATIVE); LEUKOCYTE ESTERASE,URINE NEGATIVE (NEGATIVE); NITRITE,URINE NEGATIVE (NEGATIVE); PROTEIN,URINE 100 mg/dL (NEGATIVE); URINE SPECIFIC GRAVITY 1.021; UROBILINOGEN,URINE NEGATIVE mg/dL (<2.0)
[2017-12-03 19:53] LABS: CHLAM PCR NOT DETECTED (NOT DETECT); GON PCR NOT DETECTED (NOT DETECT)
[2017-12-03] MEDS ORDERED: CIPROFLOXACIN HCL 500 MG TABLET PO ONE (20:20)
--- NOTE | 2017-12-03 20:20 | RADIOLOGY REPORT (SQ) ---
EXAM DESCRIPTION: U/S SCROTUM W/DOPPLER COMPLETED DATE/TIME: 12/03/2017 7:44 pm REASON FOR STUDY: testicular pain COMPARISON: 07/20/2017 TECHNIQUE: Static and realtime joseph scale imaging of the scrotum and testes. Selected color Doppler and spectral images recorded to document blood flow. LIMITATIONS: None. FINDINGS: RIGHT: TESTICLE: Normal size, 4.3 x 2.1 x 3 cm. Normal echotexture. Normal blood flow. No mass. EPIDIDYMIS: Normal. 12 mm. 4 mm epididymal cyst. HYDROCELE OR VARICOCELE: No. HERNIA OR EXTRA-TESTICULAR MASS: No. OTHER: No other significant finding. LEFT: TESTICLE: Normal size,. Normal echotexture. Normal blood flow. No mass. EPIDIDYMIS: 11.6 mm. The epididymis is heterogeneous. HYDROCELE OR VARICOCELE: No. HERNIA OR EXTRA-TESTICULAR MASS: No. OTHER: No other significant finding. IMPRESSION: Heterogeneous left epididymis may suggest epididymitis. Cannot exclude neoplasm, likely benign. TECHNICAL DOCUMENTATION: JOB ID: [id number]- All Rights Reserved Reading location - IP/workstation name: [email or web address]
--- NOTE | 2017-12-03 20:24 | ER Document Report ---
ED General - General Chief Complaint: Testicular Pain Stated Complaint: TESTICULAR PAIN,BLOOD IN URINE Time Seen by Provider: 12/03/17 17:04 Mode of Arrival: Ambulatory Notes: Patient is a 32-year-old male that presents to the emergency department for chief complaint of left testicular pain. Patient has a history of recurrent left epididymitis and orchitis in the past. He states that this started over the past several days, and progressed to the point where he decided come to the emergency department. He states he always has off and on left testicular pain since June when he was hospitalized for it. He states he has been having a sharp pain that radiates up into the groin from the left testicle, and he thinks that his prostate may be involved to be started having hematuria today. He denies any recent sexual activity, denies any urethral discharge. He also denies noting any fevers, chills, night sweats, testicular swelling. Past Medical History: Orchitis, pots syndrome Past Surgical History: Appendectomy Social History: Admits to smoking cigarettes, and occasional alcohol use, denies illicit drug use. Family History: Reviewed and noncontributory for presenting illness Allergies: Reviewed, see documented allergy list. REVIEW OF SYSTEMS: Unless otherwise stated in this report the patient's positive and negative responses for review of systems for constitutional, eyes, ENT, cardiovascular, respiratory, gastrointestinal, neurological, genitourinary, musculoskeletal, and integumentary systems and related systems to the presenting problem are either as stated in the HPI or were not pertinent or were negative for the symptoms and/or complaints related to the presenting medical problem. PHYSICAL EXAMINATION: Vital signs reviewed, nursing noted reviewed. GENERAL: Well-appearing, well-nourished and in no acute distress. HEAD: Atraumatic, normocephalic. EYES: Eyes appear normal, extraocular movements intact, sclera anicteric, conjunctiva are normal. ENT: nares patent, oropharynx clear without exudates. Moist mucous membranes. NECK: Normal range of motion, supple without lymphadenopathy LUNGS: Breath sounds clear to auscultation bilaterally and equal. No wheezes rales or rhonchi. HEART: Regular rate and rhythm without murmurs ABDOMEN: Soft, nontender, normoactive bowel sounds. No rebound, guarding, or rigidity. No masses appreciated. EXTREMITIES: Nontender, good range of motion, no pitting or edema. Male genital: Patient has left testicular tenderness, without erythema, or testicular edema, there is tenderness along the left epididymis, no palpable hernia bilaterally, no scrotal erythema or abscess appreciated. The rest of the patient's general exam is unremarkable, no blood or pus at the meatus. Bilateral testicles with vertical lie NEUROLOGICAL: No focal neurological deficits. Moves all extremities spontaneously Motor and sensory grossly intact on exam. PSYCH: Normal mood, normal affect. SKIN: Warm, Dry, normal turgor, no rashes or lesions noted on exposed skin TRAVEL OUTSIDE OF THE [place] IN LAST 30 DAYS: No - Related Data Allergies/Adverse Reactions: tramadol HCl [From [facility]] Allergy (Severe, Verified 06/03/16 05:46) Swelling of Throat levaquin Allergy (Uncoded 06/21/17 17:11) Past Medical History - General Information source: Patient - Social History Smoking Status: Never Smoker Chew tobacco use (# tins/day): No Frequency of alcohol use: None Drug Abuse: None Family History: Other - Migraine Patient has suicidal ideation: No Patient has homicidal ideation: No - Past Medical History Cardiac Medical History: Reports: Hx Hypertension - DX MORE THAN FIVE YEARS AGO Denies: Hx Coronary Artery Disease, Hx Heart Attack Pulmonary Medical History: Reports: Hx Asthma - DX AT AGE [age] Denies: Hx Bronchitis, Hx COPD, Hx Pneumonia Neurological Medical History: Reports: Hx Seizures. Denies: Hx Cerebrovascular Accident Endocrine Medical History: Denies: Hx Diabetes Mellitus Type 2 Renal/ Medical History: Denies: Hx Peritoneal Dialysis GI Medical History: Reports: Hx Irritable Bowel. Denies: Hx Crohn's Disease, Hx Gastritis, Hx Gastroesophageal Reflux Disease, Hx Hepatitis Musculoskeletal Medical History: Denies Hx Arthritis Skin Medical History: Denies Hx MRSA Psychiatric Medical History: Reports: Hx Anxiety - DX IN 2007, Hx Bipolar Disorder - DX IN 2007, Hx Depression, Hx Post Traumatic Stress Disorder - DX IN 2007 Infectious Medical History: Denies: Hx Hepatitis, Hx MRSA Past Surgical History: Reports: Hx Abdominal Surgery - APPENDIX, Hx Appendectomy , Hx Orthopedic Surgery - left wrist. Denies: Hx Adenoidectomy, Hx Pacemaker - Immunizations Immunizations up to date: Yes Hx Diphtheria, Pertussis, Tetanus Vaccination: Yes Physical Exam - Vital signs Vitals: Temp Pulse Resp BP Pulse Ox 98.8 F 88 18 148/96 H 100 12/03/17 17:17 12/03/17 17:17 12/03/17 17:17 12/03/17 17:17 12/03/17 17:17 Course - Re-evaluation Re-evalutation: Patient seen and examined vital signs reviewed. Laboratory data and imaging were ordered as appropriate for the patient's presenting symptoms and complaint, with consideration of any critical or life threatening conditions that may be associated with their obtained history and exam as noted above. Patient was treated with Percocet 5 mg, and started on ciprofloxacin 500 mg p.o. Results were reviewed when available and demonstrated left epididymitis by scrotal ultrasound The patient was re-evaluated and was improved and stable Evaluation was most consistent with left epididymitis, will discharge the patient home on ciprofloxacin for 14 days, as he may have a component of prostatitis given he had hematuria. He is advised to follow-up with urology. Results were discussed with the patient at this point, after careful consideration I feel that that patient can be discharged from the emergency department, the patient was educated treatments and reasons to return to the emergency department based on their presumed diagnosis as noted above, they were advised to followup with a primary care physician in 2-3 days. Patient was agreeable to plan of care. *Note is created using voice recognition software and may contain spelling, syntax or grammatical errors. 12/03/17 20:46 Laboratory 12/03/17 12/03/17 17:35 17:35 Urine Color ELINA Urine Appearance SLIGHTLY-CLOUDY Urine pH 6.0 Ur Specific [place] 1.021 Urine Protein 100 H Urine Glucose (UA) NEGATIVE Urine Ketones NEGATIVE Urine Blood LARGE H Urine Nitrite NEGATIVE Urine Bilirubin NEGATIVE Urine Urobilinogen NEGATIVE Ur Leukocyte Esterase NEGATIVE Urine WBC (Auto) 1 Urine RBC (Auto) >182 Squamous Epi Cells Auto <1 Urine Mucus (Auto) FEW Urine Ascorbic Acid NEGATIVE Chlamydia DNA (PCR) NOT DETECTED N.gonorrhoeae DNA (PCR) NOT DETECTED Scrotum Ultrasound 12/03/17 17:04 IMPRESSION: Heterogeneous left epididymis may suggest epididymitis. Cannot exclude neoplasm, likely benign. - Vital Signs Vital signs: Temp Pulse Resp BP Pulse Ox 98.8 F 88 18 148/96 H 100 12/03/17 17:17 12/03/17 17:17 12/03/17 17:17 12/03/17 17:17 12/03/17 17:17 - Laboratory Laboratory results interpreted by me: 12/03/17 17:35 Urine Protein 100 H Urine Blood LARGE H Discharge - Discharge Clinical Impression: Epididymitis without abscess Prostatitis Qualifiers: Prostatitis type: unspecified Qualified Code(s): N41.9 - Inflammatory disease of prostate, unspecified Condition: Stable Disposition: HOME, SELF-CARE Instructions: Epididymitis ([facility]) Additional Instructions: Please return to the emergency department if you have any worsening, or concern of your symptoms. Please return to the emergency department if you develop chest pain, difficulty breathing, severe abdominal pain, or ongoing vomiting. Please follow-up with your primary care physician in 2-3 days and any other recommended physicians. If prescribed, take all medications as directed. If you have any questions or concerns do not hesitate to return the emergency department for evaluation. Please follow-up with urology, call for appointment, take the full course of antibiotics. Do not perform any exert of exercise activity while taking this antibiotic, avoid any calcium supplements, or milk when using this product as it will make it less effective. Prescriptions: Ciprofloxacin HCl [Cipro 500 mg Tablet] 500 mg PO BID #28 tablet Naproxen [Naprosyn] 500 mg PO Q12H PRN #30 tablet PRN Reason: general pain Referrals: KARISHMA HALL DO [Primary Care Provider] - Follow up in 3-5 days JORGE RAMAN MD [NO LOCAL MD] - Follow up in 3-5 days (urology)
[2017-12-03 20:45] VITALS: BP 139/95
== END 2017-12-03 20:44 | disposition home or self-care (01) ==
LOC: ER 16:56
DX: N45.1 Epididymitis (principal); N41.9 Inflammatory disease of prostate, unspecified; N50.812 Left testicular pain; R31.9 Hematuria, unspecified; I10 Essential (primary) hypertension; J45.909 Unspecified asthma, uncomplicated; Z88.5 Allergy status to narcotic agent; Z88.1 Allergy status to other antibiotic agents
CPT/HCPCS: 76870; 81001; 87491; 87591; 93976; 99284

== ENCOUNTER 2019-09-13 07:47 | Emergency (ER) | payer BC ==
[2019-09-13 09:21] LABS: ABSOLUTE EOSINOPHILS # (AUTO) 0.5 10^3/uL (0.0-0.6); ABSOLUTE LYMPHOCYTES (AUTO) 2.1 10^3/uL (0.5-4.7); ABSOLUTE MONOCYTES (AUTO) 0.5 10^3/uL (0.1-1.4); ABSOLUTE NEUT (AUTO) 3.8 10^3/uL (1.7-8.2); BASOPHILS % (AUTO) 0.6 % (0-2); EOSINOPHILS % (AUTO) 7.4 % (0-6); HEMATOCRIT 44.3 % (37.9-51.0); LYMPHOCYTES % (AUTO) 29.9 % (13-45); MEAN CORPUSCULAR HEMOGLOBIN 28.6 pg (27.0-33.4); MEAN CORPUSCULAR HGB CONC 33.9 g/dL (32.0-36.0); MEAN CORPUSCULAR VOLUME 84 fl (80-97); MONOCYTES % (AUTO) 7.7 % (3-13); PLATELET COUNT 235 10^3/uL (150-450); RED BLOOD COUNT 5.27 10^6/uL (4.35-5.55); SEGMENTED NEUTROPHILS % (AUTO) 54.4 % (42-78); TOTAL CELLS COUNTED % (AUTO) 100 %
--- NOTE | 2019-09-13 09:29 | ER Document Report ---
ED GI Bleed / Rectal Pain - General Chief Complaint: Hemorrhoids Stated Complaint: ABDOMINAL PAIN,RECTAL PAIN Time Seen by Provider: 09/13/19 09:10 Primary Care Provider: DEIRDRE LOPEZ DO [Primary Care Provider] - Follow up as needed Notes: CHIEF COMPLAINT: Lower abdominal pain, hemorrhoids HPI: 34-year-old male presenting to the emergency department complaining of bilateral lower abdominal pain that began yesterday. Patient also complaining of a hemorrhoid that began yesterday and complaining of rectal pain with same. No fever. No vomiting. ROS: See HPI - all other systems were reviewed and are otherwise negative Constitutional: no fever Eyes: no drainage, no blurred vision ENT: no runny nose, no sore throat Cardiovascular: no chest pain Resp: no SOB, no cough GI: no vomiting, no diarrhea, + abdominal pain : no dysuria Integumentary: no rash Allergy: no hives Musculoskeletal: no extremity pain or swelling Neurological: no numbness/tingling, no weakness MEDICATIONS: I agree with the patient medications as charted by the RN. ALLERGIES: I agree with the allergies as charted by the RN. PAST MEDICAL HISTORY/PAST SURGICAL HISTORY: Reviewed and agree as charted by RN. SOCIAL HISTORY: Reviewed and agree as charted by RN. FAMILY HISTORY: No significant familial comorbid conditions directly related to patient complaint EXAM: Reviewed vital signs as charted by RN. CONSTITUTIONAL: Alert and oriented and responds appropriately to questions. Well-appearing; well-nourished HEAD: Normocephalic; atraumatic EYES: Conjunctivae clear, sclerae non-icteric ENT: normal nose; no rhinorrhea; moist mucous membranes NECK: Supple without meningismus CARD: RRR; no murmurs, no clicks, no rubs, no gallops; symmetric distal pulses RESP: Normal chest excursion without splinting or tachypnea; breath sounds clear and equal bilaterally; no wheezes, no rhonchi, no rales, pulse oximetry 100% on room air not hypoxic ABD/GI: Normal bowel sounds; non-distended; soft, mild tenderness across the lower abdomen on palpation, no rebound, no guarding; no palpable organomegaly or masses. Rectal: Small hemorrhoid is noted at 3:00, nonthrombosed. No visible bleeding, good rectal tone. BACK: The back appears normal and is non-tender to palpation, there is no CVA tenderness EXT: Normal ROM in all joints; non-tender to palpation; no cyanosis, no effusions, no edema SKIN: Normal color for age and race; warm; dry; good turgor; no acute lesions noted NEURO: Moves all extremities equally; Motor and sensory function intact PSYCH: The patient's mood and manner are appropriate. Grooming and personal hy giene are appropriate. MDM: 34-year-old male lower abdominal pain that began yesterday. Will obtain lab work and imaging to evaluate for diverticulitis. Also with a small hemorrhoid. No intervention necessary for this today will likely need referral to surgery for removal if desired TRAVEL OUTSIDE OF THE [place] IN LAST 30 DAYS: No - Related Data Allergies/Adverse Reactions: tramadol HCl [From [facility]] Allergy (Severe, Verified 09/13/19 08:24) Swelling of Throat levaquin Allergy (Uncoded 06/21/17 17:11) Past Medical History - Social History Smoking Status: Former Smoker Frequency of alcohol use: None Drug Abuse: Other Family History: Other - Migraine Patient has homicidal ideation: No - Past Medical History Cardiac Medical History: Reports: Hx Hypertension Denies: Hx Coronary Artery Disease, Hx Heart Attack Pulmonary Medical History: Reports: Hx Asthma - DX AT AGE [age] Denies: Hx Bronchitis, Hx COPD, Hx Pneumonia Neurological Medical History: Reports: Hx Seizures. Denies: Hx Cerebrovascular Accident Endocrine Medical History: Denies: Hx Diabetes Mellitus Type 2 Renal/ Medical History: Denies: Hx Peritoneal Dialysis GI Medical History: Reports: Hx Irritable Bowel. Denies: Hx Crohn's Disease, Hx Gastritis, Hx Gastroesophageal Reflux Disease, Hx Hepatitis Musculoskeletal Medical History: Denies Hx Arthritis Skin Medical History: Denies Hx MRSA Psychiatric Medical History: Reports: Hx Anxiety - DX IN 2007, Hx Bipolar Disorder - DX IN 2007, Hx Depression, Hx Post Traumatic Stress Disorder - DX IN 2007 Infectious Medical History: Denies: Hx Hepatitis, Hx MRSA Past Surgical History: Reports: Hx Abdominal Surgery - APPENDIX, Hx Appendectomy, Hx Orthopedic Surgery - left wrist. Denies: Hx Adenoidectomy, Hx Pacemaker - Immunizations Immunizations up to date: Yes Hx Diphtheria, Pertussis, Tetanus Vaccination: Yes Physical Exam - Vital signs Vitals: Temp Pulse Resp BP Pulse Ox 98.8 F 101 H 20 146/106 H 97 09/13/19 07:53 09/13/19 07:53 09/13/19 07:53 09/13/19 07:53 09/13/19 07:53 Course - Re-evaluation Re-evalutation: 09/13/19 11:17 CT shows constipation and a small right inguinal hernia. Discussed with the patient. He has Metamucil at home which he prefers to take. We will write him a short course of pain medication, surgical referral if needed. He is moving to [place] in 2 weeks if the Anusol resolves the hemorrhoid he may follow-up there - Vital Signs Vital signs: Temp Pulse Resp BP Pulse Ox 98.8 F 101 H 20 146/106 H 97 09/13/19 08:10 09/13/19 07:53 09/13/19 07:53 09/13/19 07:53 09/13/19 07:53 - Laboratory Result Diagrams: 09/13/19 09:10 09/13/19 09:10 Laboratory results interpreted by me: 09/13/19 09:10 Eos % (Auto) 7.4 H Discharge - Discharge Clinical Impression: Abdominal pain, bilateral lower quadrant, Inguinal hernia, right Hemorrhoid Qualifiers: Hemorrhoid type: unspecified Qualified Code(s): K64.9 - Unspecified hemorrhoids Constipation Qualifiers: Constipation type: unspecified constipation type Qualified Code(s): K59.00 - Constipation, unspecified Condition: Stable Disposition: HOME, SELF-CARE Additional Instructions: Take the medications as prescribed no driving if taking narcotics for pain. Remember that narcotics will make you more constipated. Use the Anusol suppositories as prescribed. Follow-up with surgery clinic for further evaluation of the hemorrhoids as needed Prescriptions: Hydrocortisone Acetate [Anusol Hc 25 mg Supp.rect] 1 supp.rect [place] BID #14 supp.rect Hydrocodone/Acetaminophen [[place] 5-325 mg Tablet] 1 tab PO Q4 PRN #10 tablet PRN Reason: Referrals: DEIRDRE LOPEZ DO [Primary Care Provider] - Follow up as needed WEI ROBERTS MD [ACTIVE STAFF] - Follow up as needed
[2019-09-13] MEDS ORDERED: KETOROLAC TROMETHAMINE INJ/PF 30 MG/1 ML SDV IV ONE (09:30)
[2019-09-13 09:31] LABS: APPEARANCE,URINE CLEAR; BILIRUBIN,URINE NEGATIVE (NEGATIVE); COLOR,URINE YELLOW; GLUCOSE, URINE NEGATIVE (NEGATIVE); KETONES,URINE NEGATIVE (NEGATIVE); LEUKOCYTE ESTERASE,URINE NEGATIVE (NEGATIVE); NITRITE,URINE NEGATIVE (NEGATIVE); PROTEIN,URINE NEGATIVE (NEGATIVE); UROBILINOGEN,URINE NEGATIVE mg/dL (<2.0)
[2019-09-13 09:41] LABS: ALBUMIN 4.4 g/dL (3.5-5.0); ALKALINE PHOSPHATASE 43 U/L (38-126); ANION GAP 6 (5-19); ASPARTATE AMINO TRANSFERASE 18 U/L (17-59); BLOOD UREA NITROGEN 17 mg/dL (7-20); CALCIUM 9.4 mg/dL (8.4-10.2); CARBON DIOXIDE 27 mmol/L (22-30); CHLORIDE 106 mmol/L (98-107); GLUCOSE 101 mg/dL (75-110); POTASSIUM 4.4 mmol/L (3.6-5.0); TOTAL PROTEIN 7.4 g/dL (6.3-8.2)
--- NOTE | 2019-09-13 10:58 | RADIOLOGY REPORT (SQ) ---
EXAM DESCRIPTION: CT ABD/PELVIS WITH IV ONLY IMAGES COMPLETED DATE/TIME: 09/13/2019 10:36 am REASON FOR STUDY: lower abd pain COMPARISON: None. TECHNIQUE: CT scan of the abdomen and pelvis performed using helical scanning technique with dynamic intravenous contrast injection. No oral contrast. Images reviewed with lung, soft tissue, and bone windows. Reconstructed coronal and sagittal MPR images reviewed. Delayed images for evaluation of the urinary system also acquired. All images stored on PACS. All CT scanners at this facility use dose modulation, iterative reconstruction, and/or weight based d osing when appropriate to reduce radiation dose to as low as reasonably achievable (ALARA). [facility]: Dose Right [facility]: CareDose [facility]: Dose Right [facility]: Teradose 4D [facility]: [employer] CONTRAST TYPE AND DOSE: contrast/concentration: Isovue 350.00 mmol/ml; Total Contrast Delivered: 100 .0 ml; Total Saline Delivered: 72.0 ml 100 mL Omnipaque 350- low osmolar. RENAL FUNCTION: BUN 17, creatinine 0.95 RADIATION DOSE: CT Rad equipment meets quality standard of care and radiation dose reduction techniq ues were employed. CTDIvol: 10.4 - 14.0 mGy. DLP: 1343 mGy-cm.. LIMITATIONS: None. FINDINGS: LOWER CHEST: No significant findings. No nodules or infiltrates. LIVER: Normal size. No masses. No dilated ducts. SPLEEN: Normal size. No focal lesions. PANCREAS: No masses. No significant calcifications. No adjacent inflammation or peripancreatic fluid collections. Pancreatic duct not dilated. GALLBLADDER: No identified stones by CT criteria. No inflammatory changes to suggest cholecystitis. ADRENAL GLANDS: No significant masses or asymmetry. RIGHT KIDNEY AND URETER: No solid masses. 1.2 cm interpolar region cyst. 3 mm inferior pole medulla ry calcification. No hydronephrosis or hydroureter. LEFT KIDNEY AND URETER: No solid masses. 1 cm inferior pole cyst. No significant calcifications. No hydronephrosis or hydroureter. AORTA AND VESSELS: No aneurysm. No dissection. Renal arteries, SMA, celiac without stenosis. RETROPERITONEUM: No retroperitoneal adenopathy, hemorrhage or masses. BOWEL AND PERITONEAL CAVITY: No masses or inflammatory changes. No free fluid or peritoneal masses. Fecalized distal ileum. Gas and stool throughout the colon. No dilated bowel. APPENDIX: Not visualized. PELVIS: No mass. No free fluid. Normal bladder. ABDOMINAL WALL: No masses. 2.9 x 2.5 cm fat containing right inguinal hernia. BONES: No significant or acute findings. OTHER: No other significant finding. IMPRESSION: Fecalized distal ileum, possibly representing delayed transit. No findings of bowel obs truction. 2.9 x 2.5 cm fat containing right inguinal hernia. TECHNICAL DOCUMENTATION: JOB ID: [id number] Quality ID # [id number]: Final reports with documentation of one or more dose reduction techniques (e.g., Au tomated exposure control, adjustment of the mA and/or kV according to patient size, use of iterative reconstruction technique) 2010 [employer]- All Rights Reserved Reading location - IP/workstation name: [email or web address]
[2019-09-13 11:29] VITALS: BP 121/90
== END 2019-09-13 11:33 | disposition home or self-care (01) ==
LOC: ER 07:47
DX: K64.9 Unspecified hemorrhoids (principal); K59.00 Constipation, unspecified; K40.90 Unilateral inguinal hernia, without obstruction or gangrene, not specified as recurrent; R10.30 Lower abdominal pain, unspecified
CPT/HCPCS: 99283; 96374; 36415; 83690; 85025; 80053; 81001; 74177; J1885